=== PATIENT | female | born 1945 | race Caucasian/White ===

== ENCOUNTER 2023-10-08 13:51 | Outpatient (AMB) | payer MEDICARE, SELFPAY ==
--- NOTE | 2023-10-08 13:58 | A.OFFVIS_ITS ---
Intake Vital Signs 10/08/23 14:02 Height 5 ft 4 in Weight 170 lb 6 oz BMI 29.2 BP 141/81 H Blood Pressure Location Rt brachial Position Sitting Pulse 99 Pulse Source Pulse Oximeter Pulse Oximetry (%) 100 Oxygen Delivery Method Room Air Intake Visit Reasons: carlos foot pain Intake Note: Pain today 5/10 Cardiovascular Rn Required: No Accompanied by: Self / Same As Patient Allergies Penicillins Allergy (Unknown, Verified 10/08/23 14:01) Anaphylaxis garcinia Allergy (Unknown, Uncoded 10/08/23 14:01) Rash HPI carlos foot pain HPI Details Patient is a pleasant 78 years old female with history of osteopenia, neuropathy, IFG with A1C 6.3, prior toes fractures on both feet by hitting a piece of furniture in the middle of night, presents today for initial evaluation of bilateral feet due to neuropathy symptoms. Denies any recent trauma, injury or falls. She was seen by [facility] a year ago with discussion of potential bunionectomy but has not made decision for this. Patient is interested in more modern approach to traditional bunionectomy and will follow up with Dr. Silveira about this. Patient also reports widespread body pain, chronic back pain and fibromyalgia for which takes muscle relaxant. She has been hesitant to gabapentin in the past due to potential side effects. Pain is constant and is worst at night. She rates pain at 5/10 during the day and 8/10 at night. Pain affects her daily functioning, ADLs, sleep, mood and social activities. Denies any fever, infection, weight loss, claudication, bladder or bowel dysfunction or saddle anesthesia. Location Bilateral feet, pain will travel to her knees at times Duration Chronic pain for >15 years Characteristics of symptom or complaint Burning, numbness, tingling, aching, stabbing, dull Aggravating or associated factors Sitting, walking, weather changes Relieving factors Muscle relaxer Treatment [facility] -discussed potential bunionectomy in [facility] Medical History (Updated 10/08/23 @ 15:18 by MARIA FERNANDA Centeno) Retinal vein occlusion Hypertension Hyperlipidemia GERD (gastroesophageal reflux disease) Fibromyalgia Attention deficit disorder of adult with hyperactivity Surgical History Hx of tonsillectomy H/O section Social History (Reviewed 10/08/23 @ 14:12 by LINDA Centeno Alcohol intake: current Alcohol intake frequency: holidays/special occasions only Patient Tobacco Use Status: Former Tobacco user Quit Date: 1974 Tobacco use type: Cigarette Review of Systems Const All systems reviewed & are unremarkable except as noted in HPI and below Reports as per HPI, Denies body aches, Denies chills, Reports fatigue, Denies fever(s), Denies headache(s), Denies malaise, Denies stops breathing during sleep, Reports weakness and Denies weight loss ENT Denies headache(s) and Reports neck pain Musc Reports as per HPI, Reports back pain, Reports arthralgias, Denies joint swelling, Reports limited range of motion, Denies muscle weakness, Reports neck pain, Reports numbness, Denies radiating pain into limb, Reports stiffness and Reports tingling Neuro Denies headache(s), Reports numbness, Reports tingling and Reports weakness Endo Reports fatigue Physical Exam Vital Signs: Last Vital Signs Pulse 99 10/08/23 14:02 BP 141/81 H 10/08/23 14:02 Pulse Ox 100 10/08/23 14:02 Oxygen Delivery Method Room Air 10/08/23 14:02 BMI result Body Mass Index 29.2 General: Appears afebrile. Alert and oriented. Mood and affect appropriate. Follows and participates in conversation appropriately. Respiratory effort is unlabored. No cough. Able to transition from sit to stand unassisted. Ambulates with bilaterally normal heel strike and toe off. Back/Spine/Pelvis Cervical Spine: cervical ROM normal and No Cervical spine tenderness Thoracic/Lumbar Spine: thoracic and lumbar spine normal to inspection, No Thoracic/lumbar spine scar(s), Lasegue's sign negative, straight leg raise negative bilaterally, No paraspinal muscle tenderness, thoraco-lumbar ROM limited, No thoracic spinal tenderness and No lumbar spinal tenderness Pelvis: no buttock tenderness Extrem Other: There is a decreased sensation over the soles of the feet and toes. Reports numbness, burning, hot, tingling in both feet, worse at night time. No breaks in the skin. No soft tissue swelling or warmth. +2 pedal pulses bilaterally. Diminished patellar and achilles reflexes bilaterally. No allodynia or pinprick hyperalgesia. Protective pain sensation is intact bilaterally. Mild bony enlargement along bunions bilaterally. General: Yes capillary refill normal, Yes no clubbing, cyanosis or edema and Yes no calf tenderness Results Reviewed Results Reviewed: No imaging reports are available today for review. Assessment & Plan Assessment & Plan (1) Peripheral neuropathy: Code(s): G62.9 - Polyneuropathy, unspecified (2) Bilateral foot pain: Code(s): M79.671 - Pain in right foot; M79.672 - Pain in left foot (3) Fibromyalgia: Code(s): M79.7 - Fibromyalgia Plan EMG and NVC studies to differentiate chronic peripheral neuropathy. She has history of IFG with A1C 6.3, diet and exercise controlled. Discussed risks and benefits of different treatment options including topical 8% capsaicin application and spinal cord stimulation. Informational pamphlet provided on Qutenza, gabapentin and Nevro SCS trial. Will try to arrange topical 8% capsaicin application for bilateral foot pain as the next step once we have confirmed availability. All questions and concerns have been answered and the patient agreed with the plan. Patient will return to the clinic to discuss results of the EMG/NVC findings when it is done and consider interventional therapy as indicated. Orders: Orders 2 NE nerve conduction velocity Today G62.9 - Polyneuropathy, unspecified, M79.671 - Pain in right foot, M79.672 - Pain in left foot NE electromyogram (EMG) Today G62.9 - Polyneuropathy, unspecified, M79.671 - Pain in right foot, M79.672 - Pain in left foot Medications: New diclofenac sodium 1% (Arthritis Pain (diclofenac)) apply to single knee, ankle, foot; for foot includes sole/toes/top of foot 4 grams topical QID 100 grams 0RF pain M79.671 - Pain in right foot, M79.672 - Pain in left foot capsaicin 0.1% (Arthritis Pain Relief (capsaicin)) do not wash area for at least 30 min after application 1 appl topical TID 60 grams 0RF neuropathy G62.9 - Polyneuropathy, unspecified Coding Level of Care Code New Pt Level 4 (94189) Diagnoses Peripheral neuropathy G62.9 Bilateral foot pain M79.671; M79.672 Fibromyalgia M79.7
[2023-10-08 14:02] VITALS: BP 141/81; PULSE 99; O2SAT 100; BMI 29.2
== END 2023-10-08 14:36 | disposition home or self-care (01) ==
PROVIDERS: PCP Internal Medicine; Referring Provider Internal Medicine; Visit Provider Nurse Practitioner Family
DX: G62.9 Polyneuropathy, unspecified (principal); M79.671 Pain in right foot; M79.672 Pain in left foot; M79.7 Fibromyalgia
CPT/HCPCS: 99204

== ENCOUNTER → 2023-10-08 13:51 | Outpatient (BNVA) | payer MEDICARE, SELFPAY | PROVIDERS: PCP Internal Medicine; Referring Provider Internal Medicine; Visit Provider Nurse Practitioner Family | DX: M79.671 Pain in right foot (principal); M79.672 Pain in left foot; M79.7 Fibromyalgia; G62.9 Polyneuropathy, unspecified | CPT/HCPCS: 99202 ==

== ENCOUNTER 2023-12-27 09:24 | Outpatient (REF) | payer MEDICARE, SELFPAY ==
--- NOTE | 2023-12-27 09:30 | EMG_ITS ---
Chief complaint: Chronic numbness on bilateral lower legs, knee area down to right dorsal foot and big toe, right worse than left. No footdrop. Nondiabetic. Reason for referral: Evaluate for neuropathy Referred by: Lisa Chairez NP Procedure done: Bilateral lower extremity NCS/EMG Precautions and/or limitations: None The limb temperature was monitored continuously and remained between 32-36 degrees C during the performance of the NCS. Nerve Conduction Studies Anti Sensory Summary Table ?Stim Site NR Onset (ms) Norm Onset (ms) Peak (ms) Norm Peak (ms) O-P Amp (?V) Norm O-P Amp Site1 Site2 Delta-0 (ms) Dist (cm) Cali (m/s) Norm Cali (m/s) Left Sup Peron Anti Sensory (Ankle) Lateral Leg ? 1.8 2.6 <4.4 11.7 >5.0 Lateral Leg Ankle 1.8 14.0 78 Right Sup Peron Anti Sensory (Ankle) Lateral Leg NR <4.4 >5.0 Lateral Leg Ankle 14.0 Left Sural Anti Sensory (Lat Mall) Calf ? 2.8 3.7 <4.0 6.4 >5.0 Calf Lat Mall 2.8 14.0 50 Right Sural Anti Sensory (Lat Mall) Calf ? 2.3 4.0 <4.0 7.2 >5.0 Calf Lat Mall 2.3 14.0 61 Motor Summary Table ?Stim Site NR Onset (ms) Norm Onset (ms) O-P Amp (mV) Norm O-P Amp iAmp (mV) Amp (1st) (%) Site1 Site2 Delta-0 (ms) Dist (cm) Cali (m/s) Norm Cali (m/s) Left Peroneal Motor (Ext Dig Brev) Ankle ? 3.9 <4.0 10.6 >2.5 13.2 100.0 Ankle Ext Dig Brev 3.9 0.0 B Fib ? 9.9 9.7 12.3 91.5 B Fib Ankle 6.0 30.0 50 >40 Poplt ? 11.4 9.8 12.1 92.5 Poplt B Fib 1.5 7.0 47 >40 Right Peroneal Motor (Ext Dig Brev) Ankle ? 4.4 <4.0 6.4 >2.5 8.6 100.0 Ankle Ext Dig Brev 4.4 0.0 B Fib ? 10.9 5.7 7.6 89.1 B Fib Ankle 6.5 33.0 51 >40 Poplt ? 12.3 5.5 7.0 85.9 Poplt B Fib 1.4 6.0 43 >40 Left Tibial Motor (Abd Vásquez Brev) Ankle ? 3.7 <5 10.5 >2.5 13.8 100.0 Ankle Abd Vásquez Brev 3.7 0.0 Knee ? 11.7 7.8 10.5 74.3 Knee Ankle 8.0 38.0 48 >40 Right Tibial Motor (Abd Vásquez Brev) Ankle ? 4.1 <5 13.2 >2.5 17.6 100.0 Ankle Abd Vásquez Brev 4.1 0.0 Knee ? 11.8 8.8 12.6 66.7 Knee Ankle 7.7 41.0 53 >40 EMG ?Side Muscle Nerve Root Ins Act Fibs Psw Amp Dur Poly Recrt Int Pat Comment Right AbdHallucis MedPlantar S1-2 Nml Nml Nml Nml Nml 0 Nml Complete Right AntTibialis Dp Br Peron L4-5 Nml Nml Nml Nml Nml 0 Nml Complete Right PostTibialis Tibial L5, S1 Nml Nml Nml Nml Nml 0 Nml Complete Right MedGastroc Tibial S1-2 Nml Nml Nml Nml Nml 0 Nml Complete Right VastusMed Femoral L2-4 Nml Nml Nml Nml Nml 0 Nml Complete Right ExtHallLong Dp Br Peron L5, S1 Nml Nml Nml Nml Nml 0 Nml Complete Right Peroneus Long Sup Br Peron L5-S1 Nml Nml Nml Nml Nml 0 Nml Complete Left AbdHallucis MedPlantar S1-2 Nml Nml Nml Nml Nml 0 Nml Complete Left AntTibialis Dp Br Peron L4-5 Nml Nml Nml Nml Nml 0 Nml Complete Left MedGastroc Tibial S1-2 Nml Nml Nml Nml Nml 0 Nml Complete Left VastusMed Femoral L2-4 Nml Nml Nml Nml Nml 0 Nml Complete Paraspinal EMG ?Side Muscle Nerve Root Ins Act Fibs Psw Comment Right Lumbar Upper Rami Nml Nml Nml Right Lumbar Mid Rami Nml Nml Nml Right Lumbar Lower Rami Nml Nml Nml Left Lumbar Upper Rami Nml Nml Nml Left Lumbar Mid Rami Nml Nml Nml Left Lumbar Lower Rami Nml Nml Nml FINDINGS: Right peroneal nerve showed prolonged distal latency, normal amplitude and slight slowing of conduction velocity across the fibular neck. Right superficial peroneal sensory nerve was absent. All other nerves tested were within normal. Concentric needle EMG was performed in selected muscles of the bilateral lower extremity and lumbar paraspinals. Study did not reveal signs of electric abnormalities as shown in the table below. IMPRESSION: 1. This is an abnormal study. 2. There is electrodiagnostic evidence for chronic common peroneal neuropathy, right only.. 3. There is no electrodiagnostic evidence for tibial neuropathy. lumbosacral plexopathy, lumbar radiculopathy, or more diffuse peripheral neuropathy. Thank you for your kind referral. Kay Francisco MD, LENA Board Certified, [place] [employer] and Rehabilitation (ABPMR) Board Certified, [place] Board [employer] Electrodiagnostic Medicine (ABEM) CODIN [id number] x 2 MTDD
== END 2023-12-27 09:25 | disposition home or self-care (01) ==
LOC: HO.NEURO 09:24
PROVIDERS: PCP Internal Medicine; Visit Provider Nurse Practitioner Family
DX: M79.671 Pain in right foot (principal); M79.672 Pain in left foot; G62.9 Polyneuropathy, unspecified
CPT/HCPCS: 95886; 95910

== ENCOUNTER → 2023-12-27 09:30 | Outpatient (BNV) | payer MEDICARE, SELFPAY | PROVIDERS: PCP Internal Medicine; Visit Provider Physical Medicine & Rehabilitation | DX: M79.604 Pain in right leg (principal); M79.605 Pain in left leg; G57.31 Lesion of lateral popliteal nerve, right lower limb | CPT/HCPCS: 95886; 95910 ==

== ENCOUNTER 2024-01-17 12:49 | Outpatient (REF) | payer MEDICARE, SELFPAY ==
--- NOTE | ~2024-01-17 | XR_ITS ---
EXAMINATION: XR LUMBOSACRAL SPINE WITH OBLIQUES CLINICAL INFORMATION: Spondylosis without myelopathy or radiculopathy lumbar region. COMPARISON: None available. TECHNIQUE: AP, both oblique, and lateral views of the lumbar spine. Lateral view of the lumbosacral junction. FINDINGS: The bones are diffusely demineralized. Leftward curvature of the lumbar spine. Degenerative changes in the bilateral sacroiliac joints and on limited images of the bilateral hips. Degenerative changes in the imaged lower thoracic spine. Atherosclerotic aortoiliac calcifications. Facet arthritis in the [id number] lumbar spine. Multilevel lumbar spondylosis with loss of disc space height most notable at L5-S1. Grade 1 anterolisthesis of L4 on L5. XR/XR lumbar spine 4V min IMPRESSION: Multilevel lumbar spondylosis most notable at L5-S1.
== END 2024-01-17 12:50 | disposition home or self-care (01) ==
LOC: HO.XRAY 12:49
PROVIDERS: PCP Internal Medicine; Visit Provider Nurse Practitioner Family
DX: M47.816 Spondylosis without myelopathy or radiculopathy, lumbar region (principal)
CPT/HCPCS: 72110

== ENCOUNTER 2024-01-31 14:09 | Outpatient (AMB) | payer MEDICARE, SELFPAY ==
--- NOTE | 2024-01-31 14:10 | A.OFFVIS_ITS ---
Intake Vital Signs 01/31/24 14:15 Height 5 ft 4 in Weight 171 lb 8 oz BMI 29.4 BP 140/62 H Blood Pressure Location Lt brachial Position Sitting Respiration 12 Pulse 83 Pulse Source Pulse Oximeter Pulse Oximetry (%) 95 Oxygen Delivery Method Room Air Intake Visit Reasons: Follow up EMG/Xray results Allergies Penicillins Allergy (Unknown, Verified 01/31/24 14:14) Anaphylaxis garcinia Allergy (Unknown, Uncoded 10/08/23 14:01) Rash HPI HPI Comments History of Present Illness Details Patient presents today to discuss recent Neurodiagnostic studies and lumbar spine xray results. Patient is accompanied by her . Patient continues to endorse lower back pain radiating into her lower buttocks and into both legs up to the knee levels bilaterally with paresthesia sensation worse in the right lower leg. Patient also reports bilateral leg pain with walking and reports she has multiple varicosities. Denies any previous Vascular evaluation for lower extremities. Denies any recent cough, cold, infection, fever, any significant changes in her medical history, medications or recent hospitalizations. PRIOR: Patient is a pleasant 78 years old female with history of osteopenia, neuropathy, IFG with A1C 6.3, prior toes fractures on both feet by hitting a piece of furniture in the middle of night, presents today for initial evaluation of bilateral feet due to neuropathy symptoms. Denies any recent trauma, injury or falls. She was seen by [facility] a year ago with discussion of potential bunionectomy but has not made decision for this. Patient is interested in more modern approach to traditional bunionectomy and will follow up with Dr. Silveira about this. Patient also reports widespread body pain, chronic back pain and fibromyalgia for which takes muscle relaxant. She has been hesitant to gabapentin in the past due to potential side effects. Pain is constant and is worst at night. She rates pain at 5/10 during the day and 8/10 at night. Pain affects her daily functioning, ADLs, sleep, mood and social activities. Denies any fever, infection, weight loss, claudication, bladder or bowel dysfunction or saddle anesthesia. Location Bilateral feet, pain will travel to her knees at times Duration Chronic pain for >15 years Characteristics of symptom or complaint Burning, numbness, tingling, aching, stabbing, dull Aggravating or associated factors Sitting, walking, weather changes Relieving factors Muscle relaxer Treatment [facility] -discussed potential bunionectomy in [facility] Medical History Retinal vein occlusion Hypertension Hyperlipidemia GERD (gastroesophageal reflux disease) Fibromyalgia Attention deficit disorder of adult with hyperactivity Surgical History Hx of tonsillectomy H/O section Social History Alcohol intake: current Alcohol intake frequency: holidays/special occasions only Patient Tobacco Use Status: Former Tobacco user Quit Date: 1974 Tobacco use type: Cigarette Review of Systems Const All systems reviewed & are unremarkable except as noted in HPI and below Physical Exam Vital Signs: Last Vital Signs Pulse 83 01/31/24 14:15 Resp 12 01/31/24 14:15 BP 140/62 H 01/31/24 14:15 Pulse Ox 95 01/31/24 14:15 Oxygen Delivery Method Room Air 01/31/24 14:15 BMI result Body Mass Index 29.4 General: Appears afebrile. Alert and oriented. Mood and affect appropriate. Follows and participates in conversation appropriately. Respiratory effort is unlabored. No cough. Able to transition from sit to stand unassisted. Ambulates with bilaterally normal heel strike and toe off. Back/Spine/Pelvis Cervical Spine: cervical ROM normal and No Cervical spine tenderness Thoracic/Lumbar Spine: thoracic and lumbar spine normal to inspection, No Thoracic/lumbar spine scar(s), Lasegue's sign negative, straight leg raise negative bilaterally, pain with thoraco-lumbar ROM, No paraspinal muscle tenderness, thoraco-lumbar ROM limited, No thoracic spinal tenderness and lumbar spinal tenderness at L4 and at L5 Pelvis: no buttock tenderness Sacroiliac joints: bilaterally (+Peyman's, left>right) tender to palpation Skin General skin exam: no rashes or lesions noted, no ecchymosis, spider nevi and other (varicosities noted to bilateral lower extremities) Extrem Other: There is a decreased sensation over the soles of the feet and toes. Reports numbness, burning, hot, tingling in both feet, worse at night time. No breaks in the skin. No soft tissue swelling or warmth. +2 pedal pulses bilaterally. Diminished patellar and achilles reflexes bilaterally. No allodynia or pinprick hyperalgesia. Protective pain sensation is intact bilaterally. Mild bony enlargement along bunions bilaterally. General: Yes capillary refill normal, Yes no clubbing, cyanosis or edema and Yes no calf tenderness Results Reviewed Results Reviewed: EMG and NVC studies 12/27/23 at [facility] [place] FINDINGS: Right peroneal nerve showed prolonged distal latency, normal amplitude and slight slowing of conduction velocity across the fibular neck. Right superficial peroneal sensory nerve was absent. All other nerves tested were within normal. Concentric needle EMG was performed in selected muscles of the bilateral lower extremity and lumbar paraspinals. Study did not reveal signs of electric abnormalities as shown in the table below. IMPRESSION: 1. This is an abnormal study. 2. There is electrodiagnostic evidence for chronic common peroneal neuropathy, right only.. 3. There is no electrodiagnostic evidence for tibial neuropathy. lumbosacral plexopathy, lumbar radiculopathy, or more diffuse peripheral neuropathy. XR LUMBOSACRAL SPINE WITH OBLIQUES 01/17/24 CLINICAL INFORMATION: Spondylosis without myelopathy or radiculopathy lumbar region. FINDINGS: The bones are diffusely demineralized. Leftward curvature of the lumbar spine. Degenerative changes in the bilateral sacroiliac joints and on limited images of the bilateral hips. Degenerative changes in the imaged lower thoracic spine. Atherosclerotic aortoiliac calcifications. Facet arthritis in the [id number] lumbar spine. Multilevel lumbar spondylosis with loss of disc space height most notable at L5-S1. Grade 1 anterolisthesis of L4 on L5. IMPRESSION: Multilevel lumbar spondylosis most notable at L5-S1. 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 Discussed risks and benefits of different treatment options including topical 8% capsaicin application and neuromodulation with Sprint PNS trial. Informational pamphlet provided on Qutenza and PNS/SCS trial. Procedures also discussed for lower back pain with discogenic and SIJ components. Patient will notify our office if she is interested to proceed with diagnostic injections for lower back and SIJ pain for potential PNS, SCS or RFA procedures. Tentatively plan for trial of right common peroneal nerve temporary stimulator placement at the popliteal fossa for right common peroneal neuropathy. Discussed risks and benefits of the procedure was explained to the patient and family in greater detail. Pending insurance approval for topical 8% capsaicin application for bilateral foot pain. Vascular Referral to evaluate for venous insufficiency and rule out PVD. All questions and concerns have been answered and the patient agreed with the plan. Follow up as needed. 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
[2024-01-31 14:15] VITALS: BP 140/62; PULSE 83; RESP 12; O2SAT 95; BMI 29.4
== END 2024-01-31 14:48 | disposition home or self-care (01) ==
PROVIDERS: PCP Internal Medicine; Visit Provider Nurse Practitioner Family
DX: I87.2 Venous insufficiency (chronic) (peripheral) (principal); G62.9 Polyneuropathy, unspecified; M79.7 Fibromyalgia; G57.01 Lesion of sciatic nerve, right lower limb; M47.816 Spondylosis without myelopathy or radiculopathy, lumbar region
CPT/HCPCS: 99214

== ENCOUNTER → 2024-01-31 14:09 | Outpatient (BNVA) | payer MEDICARE, SELFPAY | PROVIDERS: PCP Internal Medicine; Visit Provider Nurse Practitioner Family | DX: M79.7 Fibromyalgia (principal); M47.816 Spondylosis without myelopathy or radiculopathy, lumbar region; G57.01 Lesion of sciatic nerve, right lower limb; I87.2 Venous insufficiency (chronic) (peripheral) | CPT/HCPCS: 99212 ==

== ENCOUNTER 2024-04-16 15:34 | Outpatient (AMB) | payer MEDICARE, SELFPAY ==
[2024-04-16 15:44] VITALS: BMI 29.3
--- NOTE | 2024-04-16 15:44 | A.OFFVIS_ITS ---
Vital Signs 04/16/24 15:44 Height 5 ft 4 in Weight 171 lb BMI 29.3 Intake Visit Reasons: CHILD SUPPORT SPECIALIST/PCP referral for Intake Note: CHILD SUPPORT SPECIALIST who states left LE , states she was seen originally for neuropathy and it was shown that the Right LE had neuropathy and not as much on the Left. Left LE is believe to be . Pt states that she gets severe swelling throughout the day and she states it's in bilateral LE. Allergies Penicillins Allergy (Unknown, Verified 04/16/24 15:49) Anaphylaxis bevacizumab [From Avastin] Adverse Reaction (Intermediate, Verified 04/16/24 15:49) Eye Swelling garcinia Allergy (Unknown, Uncoded 04/16/24 15:49) Rash HPI HPI CHILD SUPPORT SPECIALIST/PCP referral for : Details: Pleasant 78-year-old female patient presents for painful varicose veins. Complaints include swelling of lower extremities, cramping, fatigue, and heaviness of the lower extremities. It has been affecting there daily activities including walking. It is noted more so in left leg. Of note she has had previous left leg tib-fib fractures. She has a newly diagnosed diabetic. In addition she quit smoking in 1974 Patient denies any previous venous surgery or injections. Patient denies any history of DVT/ PE. Patient denies any history of phlebitis. Trial of compression includes - [] They now present for vascular evaluation regarding their varicose veins. PFSH Medical History Retinal vein occlusion Hypertension Hyperlipidemia GERD (gastroesophageal reflux disease) Fibromyalgia Attention deficit disorder of adult with hyperactivity Surgical History Hx of tonsillectomy H/O section Social History Alcohol intake: current Alcohol intake frequency: holidays/special occasions only Patient Tobacco Use Status: Former Tobacco user Quit Date: 1974 Tobacco use type: Cigarette Review of Systems Const Reports as per HPI ENT Reports no additional complaints Card Denies chest pain, Denies chest pain at rest and Denies chest pain with activity Resp Denies chest congestion and Denies cough GI Reports no additional complaints Musc Details: pain over varicosities, aching of lower extremities, swelling, cramping, heaviness and tiredness, itching Denies abnormal gait Skin/Breast Reports pruritus and Denies wounds Neuro Reports no additional complaints and Denies abnormal gait Psych Denies no additional complaints Physical Exam Vital Signs: BMI result Body Mass Index 29.3 Const General: cooperative, healthy appearing and comfortable Orientation/consciousness: oriented to person, oriented to place and oriented to time Neck Carotids: no bruits Chest Chest palpation & inspection: normal inspection of the chest and normal palpation of entire chest wall Resp Effort & Inspection: normal respiratory effort and able to speak in complete sentences Cardio Rate: regular rate Heart sounds: S1 normal heart sound present and S2 normal heart sound present Peripheral pulses: Peripheral pulses 2+ throughout GI Inspection: Yes normal to inspection Skin Other: +2 edema, multiple spider telangiectasias CEAP Classification C4 - skin color changes Ep - Etiology Primary As - superficial veins P - reflux General skin exam: dry skin Neuro General: oriented to person, oriented to place and oriented to time Extrem Right lower extremity: full ROM, normal capillary refill and edema Left lower extremity: full ROM, normal capillary refill and edema Psych Mental Status: mental status grossly normal Assessment & Plan Assessment & Plan (1) Varicose veins of left lower extremity with inflammation: Code(s): I83.12 - Varicose veins of left lower extremity with inflammation Category: Medical Plan: In short, the patient has evidence of venous insufficiency. I have discussed the pathophysiology with the patient. In addition I have provided informational material regarding venous disease to the patient. We have discussed conservative measures including compression, elevation, and exercise. I have also provided a handout regarding appropriate use of compression stockings and where to purchase good compression stockings as well. I have taken the liberty of ordering venous insufficiency testing with the patient. They will follow up with me after testing. The patient had an opportunity to ask questions regarding the treatment plan. All questions were answered. Imaging studies, laboratory studies and physical exam results were discussed and reviewed in detail. No major barriers to understanding were identified. The patient expressed understanding and agreement with the above treatment plan. The patient is aware they should contact our office by phone for worsening of the current condition or the appearance of new symptoms. Thank you for allowing me to participate in the vascular care of this patient. If you have any questions or concerns regarding the treatment for the above condition please do not hesitate to contact me. The office telephone contact is [phone]. This note is constructed using voice recognition software. While every effort has been made to ensure accuracy, sports athletic trainer errors may have been included. Thank you for allowing me to participate in the care of your patient. Yours sincerely, Chance Barney MD, FACS, R.P.V.I. Orders: Orders US venous duplex LE BI 1 Week I83.12 - Varicose veins of left lower extremity with inflammation Coding Level of Care Code New Pt Level 4 (71454) Diagnoses Varicose veins of left lower extremity with inflammation I83.12
== END 2024-04-16 16:19 | disposition home or self-care (01) ==
PROVIDERS: PCP Internal Medicine; Visit Provider Surgery Vascular Surgery
DX: I83.12 Varicose veins of left lower extremity with inflammation (principal)
CPT/HCPCS: 99203

== ENCOUNTER → 2024-04-16 15:34 | Outpatient (BNVA) | payer MEDICARE, SELFPAY | PROVIDERS: PCP Internal Medicine; Visit Provider Surgery Vascular Surgery | DX: I83.12 Varicose veins of left lower extremity with inflammation (principal) | CPT/HCPCS: 99202 ==

== ENCOUNTER 2024-04-29 13:01 | Outpatient (REF) | payer MEDICARE, SELFPAY ==
--- NOTE | ~2024-04-29 | US_ITS ---
EXAMINATION: US LOWER EXTREMITY VENOUS (REFLUX EXAM), BILATERAL CLINICAL INDICATION: Lower extremity varicose veins with inflammation COMPARISON: None. TECHNIQUE: Color flow triplex imaging and compression Doppler was performed to evaluate both the deep and the superficial systems bilaterally. To evaluate the superficial system, the examination was performed in the upright position. Color-flow Doppler ultrasound and compression ultrasound were utilized. In addition, maneuvers were utilized to demonstrate reflux. FINDINGS: 1. DEEP VENOUS ULTRASOUND OF THE RIGHT LOWER EXTREMITY: Common Femoral Vein: Compressible, normal respiratory variation and augmented flow. Femoral Vein: Compressible, normal color flow and augmentation. Popliteal Vein: Compressible, normal augmentation. Deep Reflux: There is no evidence of reflux in the deep system in either the common femoral vein, superficial femoral or the popliteal vein. There is no evidence of a Frazier's cyst. 2. SUPERFICIAL ULTRASOUND WITH DOPPLER OF RIGHT LOWER EXTREMITY: GREAT SAPHENOUS VEIN: Saphenofemoral Junction: 0.4 cm; Reflux: 0 ms Proximal Thigh: 0.3 cm; Reflux: 0 ms Mid Thigh: 0.2 cm; Reflux: 0 ms Above Knee: 0.3 cm; Reflux: 0 ms At Knee: 0.3 cm; Reflux: 0 ms Below Knee: 0.3 cm; Reflux: 0 ms Mid Calf: 0.1 cm; Reflux: 0 ms Ankle: 0.2 cm; Reflux: 0 ms DUPLICATED MEDIAL GREAT SAPHENOUS VEIN: Diameter: None imaged Reflux: NA DUPLICATED LATERAL GREAT SAPHENOUS VEIN: Diameter: 0.1 cm Reflux: None SMALL SAPHENOUS VEIN: Saphenopopliteal Junction: 0.5 cm; Reflux: 0 ms Proximal: 0.2 cm; Reflux: 0 ms Distal: 0.1 cm; Reflux: 0 ms VEIN OF GIACOMINI: Size: NA Reflux: NA PERFORATORS: Location: None imaged Size: NA Reflux: NA VARICOSITIES: Location: Medial mid thigh off the great saphenous vein Size: 0.3 cm Reflux: None 3. DEEP VENOUS ULTRASOUND OF THE LEFT LOWER EXTREMITY: Common Femoral Vein: Compressible, normal respiratory variation and augmented flow. Femoral Vein: Compressible, normal color flow and augmentation. Popliteal Vein: Compressible, normal augmentation. Deep Reflux: There is no evidence of reflux in the deep system in either the common femoral vein, superficial femoral or the popliteal vein. There is no evidence of a Frazier's cyst. 4. SUPERFICIAL ULTRASOUND WITH DOPPLER OF LEFT LOWER EXTREMITY: GREAT SAPHENOUS VEIN: Saphenofemoral Junction: 0.6 cm; Reflux: 0 ms Proximal Thigh: 0.5 cm; Reflux: 0 ms Mid Thigh: 0.2 cm; Reflux: 0 ms Above Knee: 0.3 cm; Reflux: 0 ms At Knee: 0.3 cm; Reflux: 0 ms Below Knee: 0.3 cm; Reflux: 0 ms Mid Calf: 0.1 cm; Reflux: 0 ms Ankle: 0.2 cm; Reflux: 0 ms DUPLICATED MEDIAL GREAT SAPHENOUS VEIN: Diameter: None imaged Reflux: NA DUPLICATED LATERAL GREAT SAPHENOUS VEIN: Diameter: None imaged Reflux: NA SMALL SAPHENOUS VEIN: Saphenopopliteal Junction: 0.2 cm; Reflux: 0 ms Proximal: 0.2 cm; Reflux: 0 ms Distal: 0.2 cm; Reflux: 0 ms VEIN OF GIACOMINI: Size: NA Reflux: NA PERFORATORS: Location: Proximal calf off the great saphenous vein Size: 0.3 cm Reflux: None VARICOSITIES: Location: None Imaged Size: NA Reflux: NA US/US venous duplex LE BI IMPRESSION: Right: No significant venous insufficiency or reflux within the right great saphenous vein or small saphenous vein Left: No significant venous insufficiency or reflux within the left great saphenous vein or small saphenous vein
== END 2024-04-29 13:02 | disposition home or self-care (01) ==
LOC: HO.US 13:01
PROVIDERS: PCP Internal Medicine; Visit Provider Surgery Vascular Surgery
DX: I83.12 Varicose veins of left lower extremity with inflammation (principal)
CPT/HCPCS: 93970

== ENCOUNTER 2024-06-11 14:26 | Outpatient (AMB) | payer MEDICARE, SELFPAY ==
--- NOTE | 2024-06-11 14:27 | A.OFFVIS_ITS ---
Vital Signs 06/11/24 14:28 Height 5 ft 4 in Weight 158 lb 11.725 oz BMI 27.2 BP 118/78 Blood Pressure Location Rt brachial Pulse 76 Pulse Source Pulse Oximeter Intake Visit Reasons: Type 2 DM/CONFIRMED Intake Note: New Patient presents today to establish treatment for Diabetes Mellitus: Last Diabetic Eye exam: 05/2024 Last Podiatry Exam: Does not see a [facility] Home [facility] Most recent HbA1c: 6.8%, 04/02/2024, PCP Random Glucose- 127 mg/dL, Today Online Marketer Required: No Accompanied by: Significant Other Allergies Penicillins Allergy (Unknown, Verified 06/11/24 14:27) Anaphylaxis bevacizumab [From Avastin] Adverse Reaction (Intermediate, Verified 06/11/24 14:27) Eye Swelling garcinia Allergy (Unknown, Uncoded 06/11/24 14:27) Rash HPI Comments Details: [78] YO [M/F] who is seen in consultation for T2DM. Initially diagnosed with T2DM in [new onset, previous impaired fasting glucose]. A1C in the office today 6.8% Was initially started on treatment with [diet/exercise]. Current regimen [diet/exercise]. Freestyle smiley sensor: She just started using this and her average is in good range with no lows. Most recent A1C [6.8%], [Denies] nephropathy, on [ARB]. [does not have ] HLD, labs pending [Denies] CAD. Denies numbness,tingling, cramping of the lower extremities Diet: [Balanced, seeing outside medical receptionist] Weight: [Has lost 15 lb] [Has not had] diabetes education. Osteopenia She reports that she has had a DEXA of the vertebral spine but not hip. She suffered 2 toe fractures when she bumped into a couch. She does exercise regularly. She takes a daily vitamin-D supplement and some dietary calcium in her diet. [facility] Medical History (Updated 06/12/24 @ 08:13 by Maria Luisa Rasmussen NP) Type 2 diabetes mellitus Retinal vein occlusion Hypertension Hyperlipidemia GERD (gastroesophageal reflux disease) Fibromyalgia Attention deficit disorder of adult with hyperactivity Surgical History Hx of tonsillectomy H/O section Family History (Updated 06/11/24 @ 14:39 by ROSE Romero) Father No problems noted. Mother Heart disease Social History Alcohol intake: current Alcohol intake frequency: holidays/special occasions only Patient Tobacco Use Status: Former Tobacco user Tobacco use type: Cigarette Physical Exam Vital Signs: Last Vital Signs Pulse 76 06/11/24 14:28 BP 118/78 06/11/24 14:28 BMI result Body Mass Index 27.2 Absence of Cushingoid features. Absence of acromegalic features. Neck exam reveals nl size thyroid about 15 gms. No thyroid nodules palpable. No carotid bruits present. Lungs CTA. Heart S1 S2, Reg R/R. No M/R/ G. Skin exam reveals absence of vitiligo or acanthosis nigricans. Abdominal exam reveals Soft NT/ND with NA BS. No organomegaly present. Const General: cooperative and healthy appearing Nutritional Appearance: average body habitus Orientation/consciousness: oriented to person Limitations: no limitations Neck Other: . Resp Effort & Inspection: normal respiratory effort Auscultation: clear to auscultation bilaterally Cardio Jugular venous distension: no JVD Rate: regular rate Rhythm: regular rhythm Heart sounds: S1 normal heart sound present and S2 normal heart sound present Neuro General: oriented to person Extrem Other: Visual exam of foot performed. No ulcerations or open lesions. No onchomycosis, no callouses.Pulses 2 + distally Sensation intact to monofilament exam. Vibratory sensation sensed is intact with 128 Hz tuning fork Results Reviewed Results Reviewed: Laboratory Last Values Glucose (Clinic) 127 mg/dL (60-115) H 06/11/24 14:38 PCP notes reviewed. Assessment & Plan Assessment & Plan (1) Type 2 diabetes mellitus: Code(s): E11.9 - Type 2 diabetes mellitus without complications Category: Medical Plan: 78-year-old female with a prior history of impaired fasting glucose has new onset type 2 diabetes. A1c in the office today is 6.8%. She is on a freestyle Smiley 3 which she just started and numbers are in good range. She is following a balanced diet and has lost approximately 15 lb and exercises regularly. Continue diet and exercise and see the patient back in 6 months' time. She has a history of irregular heartbeat and I will obtain her labs from her PCP. If no TSH has been ordered we will have the patient go to the lab for this. (2) Osteopenia: Code(s): M85.80 - Other specified disorders of bone density and structure, unspecified site Category: Medical Plan: Patient reports that she has osteopenia on vertebral x-ray. DEXA ordered. She is taking an OTC vitamin-D supplement. She was advised to consume 1200 mg of calcium daily preferably through diet. If she is not able to get this through dietary intake she will add calcium 500 mg supplement. Orders: Orders XR DEXA axial skeleton Today M85.80 - Other specified disorders of bone density and structure, unspecified site XR DEXA vertrebral fracture Today M85.80 - Other specified disorders of bone density and structure, unspecified site Coding Level of Care Code New Pt Level 5 (43112) Complex EM visit Add On G2211 Diagnoses Type 2 diabetes mellitus E11.9 Osteopenia M85.80 Time Spent (min) 60 Comment Time spent reviewing labs/previous provider notes, face to face, chart documentation
[2024-06-11 14:28] VITALS: BP 118/78; PULSE 76; BMI 27.2
[2024-06-11 14:44] LABS: Glucose, Whole Blood 127 mg/dL (60-115)
== END 2024-06-11 15:09 | disposition home or self-care (01) ==
PROVIDERS: PCP Internal Medicine; Visit Provider Nurse Practitioner Adult Health
DX: E11.9 Type 2 diabetes mellitus without complications (principal); M85.80 Other specified disorders of bone density and structure, unspecified site
CPT/HCPCS: 99205; G2211

== ENCOUNTER → 2024-06-11 14:26 | Outpatient (BNVA) | payer MEDICARE, SELFPAY | PROVIDERS: PCP Internal Medicine; Visit Provider Nurse Practitioner Adult Health | DX: E11.9 Type 2 diabetes mellitus without complications (principal); M85.80 Other specified disorders of bone density and structure, unspecified site | CPT/HCPCS: 82947; 99202 ==

== ENCOUNTER 2024-07-02 14:40 | Outpatient (AMB) | payer MEDICARE, SELFPAY ==
--- NOTE | 2024-07-02 14:44 | A.OFFVIS_ITS ---
Intake Visit Reasons: Follow Up 04/29 [facility] Intake Note: Patient presents for follow up 04/29 . She is experiencing swelling , left is worse. Has had mild cramping. Accompanied by: Spouse Allergies Penicillins Allergy (Unknown, Verified 07/02/24 14:46) Anaphylaxis bevacizumab [From Avastin] Adverse Reaction (Intermediate, Verified 07/02/24 14:46) Eye Swelling garcinia Allergy (Unknown, Uncoded 06/11/24 14:27) Rash HPI HPI Follow Up 04/29 [facility]: Details: Pleasant 78-year-old female presents for follow-up regarding lower extremity swelling. She reports it is left more so than right. She has had no interval changes. She now presents for follow-up with venous insufficiency testing. REPLACED BY [facility] Medical History Type 2 diabetes mellitus Retinal vein occlusion Hypertension Hyperlipidemia GERD (gastroesophageal reflux disease) Fibromyalgia Attention deficit disorder of adult with hyperactivity Surgical History Hx of tonsillectomy H/O section Family History Father No problems noted. Mother Heart disease Social History Alcohol intake: current Alcohol intake frequency: holidays/special occasions only Patient Tobacco Use Status: Former Tobacco user Tobacco use type: Cigarette Review of Systems Const All systems reviewed & are unremarkable except as noted in HPI and below Reports no additional complaints ENT Reports Normal hearing present Card Denies chest pain, Denies chest pain at rest, Denies chest pain with activity and Denies pedal edema Resp Denies cough GI Denies abdominal pain Musc Denies abnormal gait, Denies muscle cramps and Denies radiating pain into limb Skin/Breast Denies skin ulcer and Denies wounds Neuro Reports Normal hearing present and Denies abnormal gait Psych Reports no additional complaints Physical Exam Const General: cooperative, healthy appearing and comfortable Orientation/consciousness: oriented to person, oriented to place and oriented to time HEENT Head: Yes normal to inspection Neck Neck: Yes normal visual inspection Carotids: no bruits Chest Chest palpation & inspection: normal inspection of the chest Resp Effort & Inspection: normal respiratory effort and able to speak in complete sentences Auscultation: clear to auscultation bilaterally, no crackles, no rales, no rhonchi and no wheezes Cardio Rate: regular rate Rhythm: regular rhythm Heart sounds: S1 normal heart sound present and S2 normal heart sound present Bruits: no carotid bruits Peripheral pulses: Peripheral pulses 2+ throughout GI Inspection: Yes normal to inspection Skin Wounds: no wounds Hair: normal Neuro General: oriented to person, oriented to place and oriented to time Cranial nerves: Yes CN's II-XII intact bilaterally and Yes Normal hearing present Cognition (Neuro): normal cognition Motor exam (neuro): 5/5 motor strength present throughout Extrem Other: venous exam: +1 edema General: No clubbing, No cyanosis and Yes edema Psych Appearance: grossly normal Mental Status: mental status grossly normal Speech and movement: Normal speech and movement present Results Reviewed Results Reviewed: Brief summary of venous insufficiency testing is as follows: right great saphenous vein: negative right small saphenous vein: negative right accessory vein: none present left great saphenous vein: negative left small saphenous vein: negative left accessory vein: none present Please note there is no evidence of any venous aneurysms or significant tortuosity Assessment & Plan Assessment & Plan (1) Varicose veins of left lower extremity with inflammation: Code(s): I83.12 - Varicose veins of left lower extremity with inflammation Category: Medical Plan: In short patient is negative for any significant venous insufficiency. We did discuss routine conservative measures including compression elevation and exer cise. She will follow up with us on an as-needed basis. Thank you for allowing us to assist in her care. If there are any questions or concerns please do not hesitate to contact us Coding Level of Care Code Est Pt Level 4 (29188) Diagnoses Varicose veins of left lower extremity with inflammation I83.12
== END 2024-07-02 15:05 | disposition home or self-care (01) ==
PROVIDERS: PCP Internal Medicine; Visit Provider Surgery Vascular Surgery
DX: I83.12 Varicose veins of left lower extremity with inflammation (principal)
CPT/HCPCS: 99213

== ENCOUNTER → 2024-07-02 14:40 | Outpatient (BNVA) | payer MEDICARE, SELFPAY | PROVIDERS: PCP Internal Medicine; Visit Provider Surgery Vascular Surgery | DX: I83.12 Varicose veins of left lower extremity with inflammation (principal) | CPT/HCPCS: 99212 ==

== ENCOUNTER 2024-07-10 13:06 | Outpatient (REF) | payer MEDICARE, SELFPAY ==
--- NOTE | ~2024-07-10 | MM_ITS ---
EXAMINATION: BONE DENSITOMETRY CLINICAL INDICATION: Osteopenia. COMPARISON: This is the patient's baseline examination. TECHNIQUE: Using a [employer] DXA System (software version: 13.1) manufactured by [employer], dual-energy x-ray absorptiometry was performed of the lumbar spine and left hip. The images are of good technical quality. Summary results are attached. FINDINGS: LEFT FEMUR, NECK: BMD 0.730 g/cm2, Z-score -0.3, T-score -2.2, osteopenia. LEFT FEMUR, TOTAL: BMD 0.755 g/cm2, Z-score -0.2, T-score -2.0, osteopenia. AP SPINE L1-L4: BMD 1.063 g/cm2, Z-score 0.7, T-score -1.0, normal. IDENTIFIED RISK FACTORS: Menopause, height loss, history of fracture (adult), thiazide, osteoporosis, . HISTORY OF FRACTURE: Other. MEDICATIONS: Calcium, vitamin D. MM/XR DEXA axial skeleton IMPRESSION: 1. DIAGNOSIS: Osteopenia based on the lowest T-score value of -2.2 in the femoral neck applying World Health Organization criteria. 2. 10-YEAR FRACTURE RISK PREDICTION, FRAX: Major osteoporotic fracture (clinical spine, forearm, hip or shoulder) 23.6%. Hip fracture 6.8%. 3. Treatment Recommendations: NOF guidelines recommend consideration for treatment in postmenopausal women and men age 50 and older presenting with the following: -A hip or vertebral (clinical or morphometric) fracture. -T-score less than or equal to -2.5 at the femoral neck or spine after appropriate evaluation to exclude secondary causes. -Low bone mass at the hip or spine and a 10-year fracture probability by FRAX of greater than or equal to 3% for hip fracture or greater than or equal to 20% for major osteoporotic fracture based on the [place] adapted WHO algorithm. 4. Other Recommendations: All treatment decisions require clinical judgment and consideration of individual patient factors, including patient preferences, comorbidities, previous drug use, risk factors not captured in the FRAX model (e.g. frailty, falls, vitamin D deficiency, increased bone turnover, interval significant decline in bone density) and possible under or overestimation of fracture risk by FRAX. Additional medical evaluation for secondary cause of low bone mineral density may be appropriate. FUTURE SCAN RECOMMENDATION: People with diagnosed cases of osteoporosis or at high risk for fracture should have regular bone mineral density tests. For patients eligible for Medicare, routine testing is allowed once every 2 years. The testing frequency can be increased to one year for patients who have rapidly progressing disease, those who are receiving or discontinuing medical therapy to restore bone mass, or have additional risk factors.
== END 2024-07-10 13:07 | disposition home or self-care (01) ==
LOC: HO.MAMMO 13:06
PROVIDERS: PCP Internal Medicine; Visit Provider Nurse Practitioner Adult Health
DX: Z13.820 Encounter for screening for osteoporosis (principal); M85.80 Other specified disorders of bone density and structure, unspecified site; Z78.0 Asymptomatic menopausal state
CPT/HCPCS: 77080

== ENCOUNTER 2024-09-09 14:36 | Outpatient (AMB) | payer MEDICARE, SELFPAY ==
[2024-09-09 14:37] VITALS: BP 170/92; PULSE 71; BMI 26.6
--- NOTE | 2024-09-09 14:37 | MHC.OFFVIS ---
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/ Dr Beata Figueroa/Irregular heart beat/dm Compressor Battery Pellets Required: No Accompanied by: Self / Same As Patient Allergies Penicillins Allergy (Unknown, Verified 07/02/24 14:46) Anaphylaxis bevacizumab [From Avastin] Adverse Reaction (Intermediate, Verified 07/02/24 14:46) Eye Swelling garcinia Allergy (Unknown, Uncoded 06/11/24 14:27) Rash Medication List - Last Reconciled 09/09/24 by Braxton Enrique MD cetirizine (Zyrtec) 10 mg PO DAILY PRN cyclobenzaprine 10 mg PO TID PRN cyclosporine 0.05% (Restasis) 1 drp ophthalmic (eye) Q12H docusate sodium (Stool Softener) 100 mg PO BID hydrochlorothiazide 25 mg PO DAILY losartan 100 mg PO DAILY metoprolol succinate ER 25 mg PO DAILY metoprolol succinate ER 50 mg PO DAILY [omega 7 PO DAILY] sennosides (senna) 8.6 mg PO DAILY HPI Comments Details: Polo is here for consultation regarding palpitations. Few weeks back, she was having palpitations. Then she underwent Holter monitor that had shown supraventricular/ventricular ectopy. There is no prior cardiac history. She has seen Cardiology at [place] in the past but that was many years ago. Not known to have any coronary disease or myocardial infarction or cardiomyopathy or any other cardiac issues. Her blood pressure is high but she feels it is because of white coat hypertension. However, she does take blood pressure meds at home. Also diabetic on metformin. She does not have any other complaints like angina or shortness of breath. [facility] Medical History (Updated 09/09/24 @ 15:53 by Braxton Enrique MD) Type 2 diabetes mellitus Retinal vein occlusion Hypertension Hyperlipidemia GERD (gastroesophageal reflux disease) Fibromyalgia Attention deficit disorder of adult with hyperactivity Surgical History (Updated 09/09/24 @ 14:45 by Ama Gordon CMA) Cataract Hx of tonsillectomy H/O section Family History Father No problems noted. Mother Heart disease Lung cancer Paternal Grandfather HTN (hypertension) Parkinsons Maternal Grandmother Cancer Social History Alcohol intake: current Alcohol intake frequency: holidays/special occasions only Patient Tobacco Use Status: Former Tobacco user Tobacco use type: Cigarette Review of Systems Const Denies chills, Denies daytime sleepiness, Denies fatigue, Denies fever(s), Denies poor appetite, Denies snoring, Denies stops breathing during sleep, Denies weakness, Denies weight gain and Denies weight loss Eyes Denies loss of vision ENT Denies dizziness and Denies hearing loss Card Denies chest pain, Denies irregular heart rhythm, Denies claudication, Reports leg edema, Denies lightheadedness, Denies palpitations, Reports dyspnea on exertion and Denies orthopnea Resp Denies cough, Denies excessive phlegm production, Reports dyspnea on exertion, Denies snoring and Denies wheezing GI Denies abdominal pain, Denies hematochezia, Denies change in bowel habits, Denies nausea and Denies vomiting Denies urinary frequency and Denies dysuria Musc Denies arthralgias, Denies muscle weakness, Denies numbness and Denies other Skin/Breast Denies nail changes and Denies rash Neuro Denies Abnormal speech present, Denies dizziness, Denies loss of vision, Denies memory loss, Denies numbness and Denies weakness Psych Denies depression and Denies memory loss Endo Denies fatigue and Denies palpitations Mayank/Lymph Denies easy bruising Aller/Immun Denies wheezing Physical Exam Vital Signs: Last Vital Signs Pulse 71 09/09/24 14:37 BP 170/92 H 09/09/24 14:37 BMI result Body Mass Index 26.6 Const General: comfortable and no acute distress Orientation/consciousness: patient oriented x3 HEENT Other: Unremarkable Head: Yes normal to inspection Neck Neck: Yes normal visual inspection Chest Chest palpation & inspection: normal inspection of the chest Resp Auscultation: clear to auscultation bilaterally Cardio Palpation: normal PMI Heart sounds: S1 normal heart sound present, S2 normal heart sound present, no gallops, no murmurs and no rubs GI Palpation (GI): Soft to palpation Back/Spine/Pelvis Other: unremarkable Skin General skin exam: no rashes or lesions noted Neuro General: patient oriented x3 Speech: No Abnormal speech present Extrem General: Yes normal to inspection Psych Mental Status: mental status grossly normal Office Procedures EKG Details: EKG with underlying sinus rhythm at 71/Min; no significant ST-T changes and otherwise unremarkable[place]. [id number], Complete Assessment & Plan Assessment & Plan (1) Atrial arrhythmia: Code(s): I49.8 - Other specified cardiac arrhythmias Category: Medical Plan: In the recent Holter monitor, underlying rhythm is sinus. There is evidence of sinus tachycardia and low burden PACs/PVCs. Findings discussed with patient. She may continue on the beta-blockers that she is already on. We will get echocardiogram for cardiac function as well as left atrial size. (2) Hypertension: Code(s): I10 - Essential (primary) hypertension Category: Medical Plan: Blood pressure is elevated today. I checked blood pressure independently and it is still on the higher side. She states she normally takes metoprolol ER 75 mg daily but this week she has only taken 50 mg daily. She can go back to her usual dose. Advised her to do home checks. She will contact us with readings. Also on losartan, hydrochlorothiazide. Orders: Orders CA echo transthoracic complete Today I49.8 - Other specified cardiac arrhythmias Coding Level of Care Code New Pt Level 4 (48737) Diagnoses Atrial arrhythmia I49.8 Hypertension I10 CPT Codes EKG - CPT: 44128-[id number], Complete ([id number])
== END 2024-09-09 15:18 | disposition home or self-care (01) ==
PROVIDERS: PCP Internal Medicine; Visit Provider Internal Medicine
DX: I49.8 Other specified cardiac arrhythmias (principal); I10 Essential (primary) hypertension
CPT/HCPCS: 93010; 99204

== ENCOUNTER → 2024-09-09 14:36 | Outpatient (BNVA) | payer MEDICARE, SELFPAY | PROVIDERS: PCP Internal Medicine; Visit Provider Internal Medicine | DX: I49.8 Other specified cardiac arrhythmias (principal); I10 Essential (primary) hypertension | CPT/HCPCS: 93005; 99202 ==

== ENCOUNTER 2024-09-15 15:59 | Outpatient (AMB) | payer MEDICARE, SELFPAY ==
--- NOTE | 2024-09-15 09:26 | A.OFFVIS_ITS ---
Vital Signs 09/15/24 16:02 Height 5 ft 4 in Weight 156 lb 8.451 oz BMI 26.9 BP 120/78 Blood Pressure Location Rt brachial Position Sitting Pulse 90 Pulse Source Pulse Oximeter Intake Visit Reasons: DEXA results/CONFIRMED Intake Note: Patient presents today for a follow-up on Type 2 Diabetes Mellitus & DEXA RESULTS: Last Diabetic Eye exam: 05/2024 Last Podiatry Exam: Does not see a Shirt Ironer Most recent HbA1c: 6.0%, 09/15/2024 Random Glucose- 104 mg/dL, Today Juice Tester Required: No Accompanied by: Significant Other Allergies Penicillins Allergy (Unknown, Verified 07/02/24 14:46) Anaphylaxis bevacizumab [From Avastin] Adverse Reaction (Intermediate, Verified 07/02/24 14:46) Eye Swelling garcinia Allergy (Unknown, Uncoded 06/11/24 14:27) Rash HPI Comments Details: 79 YO female who is seen in consultation for T2DM. Hemoglobin A1c 09/15/2024 6%, 04/13 6.8% Was initially started on treatment with diet and exercise. Current regimen diet and exercise. Freestyle ez sensor 3 average glucose: 123 14 day continuous glucose sensor report reviewed Glucose Management indicator 6.3 % Time CGM active [ ] % TIme in ranges: 0 % very high (above 250) 2 % high (181-250) 98 % in range (70-180] 0 % low (69-55) 0 % very low (below 54) Interpretation of CGMS: Excellent control [Denies] nephropathy, on [ARB]. [does not have ] HLD, [Denies] CAD. Denies numbness,tingling, cramping of the lower extremities Diet: [Balanced, seeing outside jacker feeder] Weight: [Has lost 15 lb] [Has not had] diabetes education. Osteopenia She suffered 2 toe fractures when she bumped into a couch. She does exercise regularly. She takes a daily vitamin-D supplement and some dietary calcium in her diet. Patient: Polo Bell MR#: [id number] : 1945 Acct:[id number] Age/Sex: 78 / F ADM Date: 07/10/24 Loc: [facility] Attending Dr: Maria Luisa Rasmussen NP Ordering Physician: Maria Luisa Rasmussen NP Results: Date of Service: 07/10/24 Follow Up: Procedure(s): XR DEXA axial skeleton Accession Number(s): [id number] cc: Beata Figueroa MD; Maria Luisa Rasmussen NP~ EXAMINATION: BONE DENSITOMETRY CLINICAL INDICATION: Osteopenia. COMPARISON: This is the patient's baseline examination. TECHNIQUE: Using a Blue Box DXA System (software version: 13.1) manufactured by [employer], dual-energy x-ray absorptiometry was performed of the lumbar spine and left hip. The images are of good technical quality. Summary results are attached. FINDINGS: LEFT FEMUR, NECK: BMD 0.730 g/cm2, Z-score -0.3, T-score -2.2, osteopenia. LEFT FEMUR, TOTAL: BMD 0.755 g/cm2, Z-score -0.2, T-score -2.0, osteopenia. AP SPINE L1-L4: BMD 1.063 g/cm2, Z-score 0.7, T-score -1.0, normal. IDENTIFIED RISK FACTORS: Menopause, height loss, history of fracture (adult), thiazide, osteoporosis, . HISTORY OF FRACTURE: Other. MEDICATIONS: Calcium, vitamin D. MM/XR DEXA axial skeleton IMPRESSION: 1. DIAGNOSIS: Osteopenia based on the lowest T-score value of -2.2 in the femoral neck applying World Health Organization criteria. 2. 10-YEAR FRACTURE RISK PREDICTION, FRAX: Major osteoporotic fracture (clinical spine, forearm, hip or shoulder) 23.6%. Hip fracture 6.8%. 3. Treatment Recommendations: NOF guidelines recommend consideration for treatment in postmenopausal women and men age 50 and older presenting with the following: -A hip or vertebral (clinical or morphometric) fracture. -T-score less than or equal to -2.5 at the femoral neck or spine after appropriate evaluation to exclude secondary causes. -Low bone mass at the hip or spine and a 10-year fracture probability by FRAX of greater than or equal to 3% for hip fracture or greater than or equal to 20% for major osteoporotic fracture based on the [place] adapted WHO algorithm. 4. Other Recommendations: All treatment decisions require clinical judgment and consideration of individual patient factors, including patient preferences, comorbidities, previous drug use, risk factors not captured in the FRAX model (e.g. frailty, falls, vitamin D deficiency, increased bone turnover, interval significant decline in bone density) and possible under or overestimation of fracture risk by FRAX. Additional medical evaluation for secondary cause of low bone mineral density may be appropriate. FUTURE SCAN RECOMMENDATION: People with diagnosed cases of osteoporosis or at high risk for fracture should have regular bone mineral density tests. For patients eligible for Medicare, routine testing is allowed once every 2 years. The testing frequency can be increased to one year for patients who have rapidly progressing disease, those who are receiving or discontinuing medical therapy to restore bone mass, or have additional risk factors. [facility] Medical History (Updated 09/09/24 @ 15:53 by Braxton Enrique MD) Type 2 diabetes mellitus Retinal vein occlusion Hypertension Hyperlipidemia GERD (gastroesophageal reflux disease) Fibromyalgia Attention deficit disorder of adult with hyperactivity Surgical History (Updated 09/09/24 @ 14:45 by Ama Gordon CMA) Cataract Hx of tonsillectomy H/O section Family History Father No problems noted. Mother Heart disease Lung cancer Paternal Grandfather HTN (hypertension) Parkinsons Maternal Grandmother Cancer Social History Alcohol intake: current Alcohol intake frequency: holidays/special occasions only Patient Tobacco Use Status: Former Tobacco user Tobacco use type: Cigarette Physical Exam Vital Signs: Last Vital Signs Pulse 90 09/15/24 16:02 BP 120/78 09/15/24 16:02 BMI result Body Mass Index 26.9 Const Other: Absence of Cushingoid features. Absence of acromegalic features. Neck exam reveals nl size thyroid about 15 gms. No thyroid nodules palpable. Heart S1 S2, Reg R/R. No M/R G. Skin exam reveals absence of vitiligo or acanthosis nigricans. Results AMB Hemoglobin A1c AMB Hemoglobin A1c 6.0 % Last Edit by ROSE Romero on 09/15/24 16:27 Results Reviewed Results Reviewed: Laboratory Last Values Glucose (Clinic) 104 mg/dL (60-115) 09/15/24 16:08 Hgb A1c (Clinic) 6.0 % (4.0-6.0) 09/15/24 16:14 Assessment & Plan Assessment & Plan (1) Type 2 diabetes mellitus: Code(s): E11.9 - Type 2 diabetes mellitus without complications Category: Medical Plan: Type 2 diabetic with a excellent control. Continue lifestyle measures of diet and exercise. Plan Osteopenia -2.2 Tscore she declines treatment at this time and was counseled on getting a 1200 mg of calcium and 800 IU of vitamin-D preferably in diet, supplement with otc vitamins Orders: Orders AMB Hemoglobin A1c 09/15/24 E11.9 - Type 2 diabetes mellitus without complications Alkaline Phosphatase Bone 09/15/24 M85.80 - Other specified disorders of bone density and structure, unspecified site Phosphorus 09/15/24 M85.80 - Other specified disorders of bone density and structure, unspecified site Vitamin D 25-OH Total 09/15/24 M85.80 - Other specified disorders of bone density and structure, unspecified site Albumin Level 09/15/24 M85.80 - Other specified disorders of bone density and structure, unspecified site Calcium 09/15/24 M85.80 - Other specified disorders of bone density and structure, unspecified site Parathyroid Hormone Intact 09/15/24 M85.80 - Other specified disorders of bone density and structure, unspecified site Protein Electrophoresis, Serum 09/15/24 M85.80 - Other specified disorders of bone density and structure, unspecified site Coding Level of Care Code Est Pt Level 2 (39185) Complex EM visit Add On G2211 Diagnoses Type 2 diabetes mellitus E11.9 Time Spent (min) 20 Comment Time spent reviewing labs/provider notes, face to face, chart doc
[2024-09-15 16:02] VITALS: BP 120/78; PULSE 90; BMI 26.9
[2024-09-15 16:16] LABS: Glucose, Whole Blood 104 mg/dL (60-115)
== END 2024-09-15 16:50 | disposition home or self-care (01) ==
PROVIDERS: PCP Internal Medicine; Visit Provider Nurse Practitioner Adult Health
DX: E11.9 Type 2 diabetes mellitus without complications (principal)
CPT/HCPCS: 99212; G2211

== ENCOUNTER → 2024-09-15 15:59 | Outpatient (BNVA) | payer MEDICARE, SELFPAY | PROVIDERS: PCP Internal Medicine; Visit Provider Nurse Practitioner Adult Health | DX: E11.9 Type 2 diabetes mellitus without complications (principal); Z13.820 Encounter for screening for osteoporosis; Z78.0 Asymptomatic menopausal state; M85.80 Other specified disorders of bone density and structure, unspecified site; Z79.899 Other long term (current) drug therapy | CPT/HCPCS: 82947; 83036; 99212 ==

== ENCOUNTER → 2024-10-09 12:59 | Outpatient (REF) | payer MEDICARE, SELFPAY ==
--- NOTE | 2024-10-09 13:02 | CA_ITS ---
Transthoracic Echocardiogram Patient (Last, First, Middle): Polo Bell B Gender: Female Date of : 1945 Age: 79 Procedure Date: 10/09/2024 Procedure Type: Transthoracic Echocardiogram Location: OP Height: 162. cm Weight: 70.31 kg BSA: 1.75 m2 Heart Rate: 79 bpm BP: 182 / 90 mmHg Betting Agency Manager: MICHA Referring MD: Braxton Enrique MD Symptoms: I49.8 - Other specified cardiac arrhythmias Study Quality: Fair ECG Rhythm: Sinus Conclusions: - Normal left ventricular cavity size. There is mildly increased left ventricular wall thickness. The left ventricular systolic function is hyperdynamic. The visually estimated ejection fraction is >70%. - E/E prime ratio is between 8 and 15 consistent with indeterminate filling pressures. - Normal right ventricular cavity size and systolic function. - There is mild calcification of the aortic valve. - There is mild dilatation of the ascending aorta measuring 3.80 cm. Findings Left Ventricle Normal left ventricular cavity size. There is mildly increased left ventricular wall thickness. The left ventricular systolic function is hyperdynamic. The visually estimated ejection fraction is >70%. There is no evidence of regional wall motion abnormalities. Abnormal diastolic function is noted. Spectral Doppler is indicative of an impaired relaxation filling pattern. E/E prime ratio is between 8 and 15 consistent with indeterminate filling pressures. Right Ventricle Normal right ventricular cavity size and systolic function. Atria The left atrium is normal in size. The right atrium is normal in size. Aortic Valve There is a normal trileaflet aortic valve. There is mild calcification of the aortic valve. There is no aortic valve stenosis. There is no aortic valve regurgitation. Mitral Valve There is mild mitral annular calcification. There is no mitral valve regurgitation. There is no mitral valve stenosis. Pulmonic Valve The pulmonic valve is likely normal. Tricuspid Valve Normal tricuspid valve structure. There is no tricuspid valve regurgitation. Tricuspid regurgitation envelope is inadequate for calculation of right ventricular systolic pressure. Normal right atrial pressure. Great Vessels There is mild dilatation of the ascending aorta measuring 3.80 cm. The visualized portions of the pulmonary artery and branches are normal. Venous The inferior vena cava is normal in size and collapses greater than 50% with inspiration. Pericardium/Pleural Prominent epicardial adipose tissue noted. There is no evidence of pericardial effusion. Prior Study Comparison No prior study available for comparison. Measurements 2D Linear Measurements IVSd: 1.05 0.6-0.9/0.6-1.0 cm LVIDd: 4.29 3.9-5.3/4.2-5.9 cm LVIDd Index: 2.45 2.4-3.2/2.2-3.1 cm/m2 LVIDs: 3.07 2.0-3.6 cm LVPWd: 1.01 0.7-1.1 cm LA Diam: 3.50 2.7-3.8/3.0-4.0 cm LAIDs Index: 2.00 1.5-2.3 cm/m2 LV Mass: 184.18 67-162/88-224 g LV Mass Index: 105.24 43-95/49-115 g/m2 LVOT Diam: 1.90 3.0+(-)1.3 cm 2D Systolic Function EF 4C: 69.20 >55% EF 2C: 72.00 >55% EF BiP: 70.40 >55% Mitral Valve MV Pk E: 0.76 MV PK A: 1.08 MV Decel Time: 259.00 E/A: 0.70 E'Lateral: 7.40 E'Medial: 4.68 E/E' Med: 16.30 E/E' Lat: 10.30 PHT: 76.00 MVA PHT: 2.89 [place]: 2.94 Aortic Valve AoV Pk Cali: 1.25 AoV Mn Cali: 0.97 AoV VTI: 0.26 AoV Pk Grad: 6.00 Aov Mn Grad: 4.00 DINO Cont.VTI: 2.56 LVOT LVOT Pk Cali: 1.21 LVOT Mn Cali: 0.89 LVOT VTI: 0.24 LVOT Pk Grad: 6.00 LVOT Mn Grad: 4.00 LVOT Diam: 1.90 LVOT Area: 2.84 Diastolic Function MV Pk E: 0.76 MV Pk A: 1.08 E/A: 0.70 E'Medial: 4.68 E/E' Med: 16.30 E' Laterial: 7.40 E/E' Lat: 10.30 Right Ventricle TAPSE (mm): 18.70 TVS' Cali: 10.10 Tricuspid Valve TR Pk Cali: 2.09 TR Pk Grad: 17.00 Great Vessels Aorta Sinus of Valsalva: 3.40 2.0-3.5 cm Ao Asc: 3.80 2.1-3.4 cm Ao Arch: 2.90 Pulmonary Valve PV Pk Cali: 0.95 Peak PV Grad: 4.00 Updated in Other Vendor System with Status of Final Fabrizio King MD electronically signed on 10/11/2024 7:43:25 PM with status of Final
== END ==
LOC: HO.CARD 12:59
PROVIDERS: PCP Internal Medicine; Visit Provider Internal Medicine
DX: I49.8 Other specified cardiac arrhythmias (principal)
CPT/HCPCS: 93306

== ENCOUNTER → 2024-10-09 13:02 | Outpatient (BNV) | payer MEDICARE, SELFPAY | PROVIDERS: PCP Internal Medicine; Visit Provider Internal Medicine Cardiovascular Disease | DX: I35.8 Other nonrheumatic aortic valve disorders (principal); I34.81 Nonrheumatic mitral (valve) annulus calcification | CPT/HCPCS: 93306 ==

== ENCOUNTER 2024-12-07 14:28 | Outpatient (AMB) | payer MEDICARE, SELFPAY ==
[2024-12-07 14:33] VITALS: BP 140/80; PULSE 85; BMI 27.0
--- NOTE | 2024-12-07 14:33 | A.OFFVIS_ITS ---
Vital Signs 12/07/24 14:33 Height 5 ft 4 in Weight 157 lb 6.561 oz BMI 27.0 BP 140/80 H Blood Pressure Location Rt brachial Position Sitting Pulse 85 Pulse Source Pulse Oximeter Intake Visit Reasons: *2 mth f/up echo Intake Note: 2 mth f/up Clean Out Driller Required: No Accompanied by: Self / Same As Patient Allergies Penicillins Allergy (Unknown, Verified 07/02/24 14:46) Anaphylaxis bevacizumab [From Avastin] Adverse Reaction (Intermediate, Verified 07/02/24 14:46) Eye Swelling garcinia Allergy (Unknown, Uncoded 06/11/24 14:27) Rash Medication List - Last Reconciled 12/07/24 by Molly Jacobson, CD REACTOR OPERATOR HEAD-C cetirizine (Zyrtec) 10 mg PO DAILY PRN cyclobenzaprine 10 mg PO TID PRN cyclosporine 0.05% (Restasis) 1 drp ophthalmic (eye) Q12H docusate sodium (Stool Softener) 100 mg PO BID hydrochlorothiazide 25 mg PO DAILY losartan 100 mg PO DAILY metoprolol succinate ER 50 mg PO DAILY [omega 7 PO DAILY] sennosides (senna) 8.6 mg PO DAILY HPI HPI *2 mth f/up echo: Details: Akira is a 79-year-old female with past medical history of hypertension, hyperlipidemia, diabetes, heart palpitations who recently had an echocardiogram and now presents for follow-up. Today she reports that she continues to have some brief palpitations. No sustained rapid rates. She has a smart watch which has said her rhythm was irr egular in the past however not recently. She is describing discomfort in her mid chest which occurs at times after eating, bending forward and if laying down. She says she has a valve that does not close good. When she has these symptoms she takes several Tums with gradual resolution. At times she will also get discomfort in her upper chest that radiates into her left arm. This symptom happens with the mid chest pains. She has no symptoms brought on by physical activity. No palpitations, lightheadedness, presyncope, syncope. No shortness of breath, PND, orthopnea or edema. Compliant with meds. [facility] Medical History (Updated 12/07/24 @ 16:14 by Molly Jacobson NP-C) Type 2 diabetes mellitus Retinal vein occlusion Hypertension Hyperlipidemia GERD (gastroesophageal reflux disease) Fibromyalgia Attention deficit disorder of adult with hyperactivity Surgical History Cataract Hx of tonsillectomy H/O section Family History Father No problems noted. Mother Heart disease Lung cancer Paternal Grandfather HTN (hypertension) Parkinsons Maternal Grandmother Cancer Social History Alcohol intake: current Alcohol intake frequency: holidays/special occasions only Patient Tobacco Use Status: Former Tobacco user Tobacco use type: Cigarette Review of Systems Const All systems reviewed & are unremarkable except as noted in HPI and below Denies chills, Denies fatigue, Denies fever(s), Denies frequent falls, Denies weakness, Denies weight gain and Denies weight loss ENT Denies dizziness Card Details: intermittent chest discomfort at rest Denies chest pain, Reports chest pain at rest, Denies chest pain with activity, Denies leg edema, Denies lightheadedness, Denies palpitations, Denies dyspnea and Denies dyspnea on exertion Resp Denies cough, Denies dyspnea and Denies dyspnea on exertion GI Denies hematochezia Musc Denies abnormal gait, Denies muscle weakness, Denies numbness, Denies radiating pain into limb and Denies tingling Neuro Denies abnormal gait, Denies dizziness, Denies frequent falls, Denies numbness, Denies tingling and Denies weakness Endo Denies fatigue and Denies palpitations Physical Exam Vital Signs: Last Vital Signs Pulse 85 12/07/24 14:33 BP 140/80 H 12/07/24 14:33 BMI result Body Mass Index 27.0 Const General: cooperative, healthy appearing, comfortable and no acute distress Orientation/consciousness: patient oriented x3 Neck Neck: Yes normal visual inspection Resp Effort & Inspection: normal respiratory effort Auscultation: clear to auscultation bilaterally, no rales, no rhonchi and no wheezes Cardio Rate: regular rate Rhythm: regular rhythm Heart sounds: S1 normal heart sound present, S2 normal heart sound present, no murmurs and no rubs Neuro General: patient oriented x3 Extrem General: Yes normal to inspection, No no pedal edema and No calf tenderness Psych Appearance: grossly normal Mental Status: mental status grossly normal Speech and movement: Normal speech and movement present Assessment & Plan Assessment & Plan (1) Chest discomfort: Code(s): R07.89 - Other chest pain Category: Medical Plan: Reports of chest discomfort which do sound atypical for angina. No symptoms brought on by exertion. She does have multiple cardiac risk factors including hypertension, hyperlipidemia and diabetes. Echocardiogram done 10/09/2024 showed EF greater than 70%, normal RV, mildly calcific aortic valve, mildly dilated ascending aorta 3.8 cm. For completeness will check an exercise stress test to ensure there is no obvious ischemia. She says she will be able to walk on a treadmill. Plan to discuss results with her on the day of the test. Signs and symptoms of true angina reviewed with her. Emergency care if ever needed for symptoms. (2) Palpitation: Code(s): R00.2 - Palpitations Category: Medical Plan: Reports of heart palpitations. No sustained rapid or irregular rates. Her smart watch has told her she has irregular heartbeat at times, not recently. A 7 day Holter was done 06/05/2024 showing normal sinus rhythm, average heart rate 77, rare PACs and PVCs, no atrial fibrillation. She is already on metoprolol. At this time she tells me her heart palpitations have not increased. Reviewed good hydration, adequate rest, caffeine reduction, medication compliance. (3) Hypertension: Code(s): I10 - Essential (primary) hypertension Category: Medical Plan: Mildly elevated today. She is on metoprolol, losartan and hydrochlorothiazide. No med changes made. Reviewed low-salt diet. (4) Hyperlipidemia: Code(s): E78.5 - Hyperlipidemia, unspecified Category: Medical Plan: [place] LDL goal less than 70 in patient with diabetes. She is not on statin for unclear reason. This is followed by her PCP. (5) Type 2 diabetes mellitus: Code(s): E11.9 - Type 2 diabetes mellitus without complications Category: Medical Plan: Hemoglobin A1c goal less than 7. Followed by PCP. Plan Time spent on chart review, documentation, interview and assessment Orders: Orders CA stress test Today R00.2 - Palpitations, R07.89 - Other chest pain Coding Level of Care Code Est Pt Level 4 (91061) Complex EM visit Add On G2211 Diagnoses Chest discomfort R07.89 Palpitation R00.2 Hypertension I10 Hyperlipidemia E78.5 Type 2 diabetes mellitus E11.9 Time Spent (min) 36
--- OUTSIDE RECORDS SUMMARY | 2024-12-07 18:24 | XMS_ITS | Patient Health Record ---
[facility] Organization [facility] Address [address] [place] [address] Care Team Providers Care Restaurant Host Name Role Phone Beata Figueroa Primary Care Provider Mariella Barrios Unavailable [phone] Allergies Allergen (clinical drug ingredient) Drug/Non Drug Allergy documented on EMR Reaction Allergy Type Onset Date Status Bee Sting Unknown Allergy Active Penicillin Unknown Drug Allergy Active Substance with sulfonamide structure and antibacterial mechanism of action (substance) Sulfa Antibiotics Unknown Drug Allergy Active Reason For Referral No Information Medications Medication SIG (Take, Route, Frequency, Duration) Notes Start Date End Date Status Losartan Potassium 100 MG 1 tablet Orall y Once a day Active Metoprolol Tartrate 25 MG Orally Twice a day Active Cyclobenzaprine HCl 10 MG Orally Active hydroCHLOROthiazide 25 MG 1 tablet in th e morning Orally Once a day Active Stool Softener Laxative Active Omeprazole Unknown Vitamin C Active Probiotic Unknown [place] 3 Active Nasal Allergy Active Nabumetone 750 MG as directed Orally Twice a day for 10 days 07/16/2017 Unknown ZyrTEC Unknown Zantac Unknown Aspirin 81 MG Orally Active Calcium Not-Taking Allergy Active Social History Tobacco Use: Social History Observation Description Date Details (start date - stop date) Former Smoker NA - NA Tobacco Use/Smoking Question Answer Notes Are you a: former smoker When did you stop smoking? 1975 Additional Findings: Tobacco Non-User Current no n-smoker Alcohol Screen Question Answer Notes Did you have a drink contain ing alcohol in the past year? Yes How often did you have a dri nk containing alcohol in the past year? Monthly or less (1 point) How many drinks did you have on a typical day when you were drinking in the past year? 1 or 2 drinks (0 point) How often did you have 6 or more drinks on one occasion in the past year? Never (0 point) Points 1 Interpretation Negative Tobacco use other than smoking: Question Answer Notes Are you an other tobacco user? No Problems Problem Type SNOMED Code ICD Code Onset Dates Problem Status W/U Status Risk Notes Problem Acquired hallux valgus (87630549) Hallux valgus (acquired), left foot (M20.12) Active confirmed Problem Acquired hallux valgus (12848718) Hallux valgus (acquired), right foot (M20.11) Active confirmed Problem [id number] Neuropathy (G62.9) Active confirmed Plan Of Treatment Pending Test Test Name Order Date X ray : Foot, left 2V 07/16/2017 X ray : Foot, right 3V 07/16/2017 Insurance Providers Payer Name Payer Address Payer Phone Subscriber Number Group Number Insured Name Patient Relationship to Insured Coverage Start Date Coverage End Date BlueCare 65 Medicare Preferred [address] [place] [address] [id number] Polo Bell Self - patient is the insured Medical (General) History Medical History History ICD Code Angina Anxiety osteoarthritis Back,Hip,and Knee pain Broken bones CAD (Cholesterol) Cataracts Depression Fibromyalgia Headaches High blood pressure Numbness Osteoporosis Raynauds syndrome Reflux ( GERD) chronic sinusitis Warts Measles Mumps Osteopenia Hyperlipidemia Vitamin D deficiency Chondromalacia patella Surgical History Surgery Date(Month/Year) section 1981 tonsillectomy 1963
== END 2024-12-07 15:27 | disposition home or self-care (01) ==
PROVIDERS: PCP Internal Medicine; Visit Provider Nurse Practitioner Family
DX: R07.89 Other chest pain (principal); R00.2 Palpitations; I10 Essential (primary) hypertension; E78.5 Hyperlipidemia, unspecified; E11.9 Type 2 diabetes mellitus without complications
CPT/HCPCS: 99214; G2211

== ENCOUNTER → 2024-12-07 14:28 | Outpatient (BNVA) | payer MEDICARE, SELFPAY | PROVIDERS: PCP Internal Medicine; Visit Provider Nurse Practitioner Family | DX: R07.89 Other chest pain (principal); R00.2 Palpitations; I10 Essential (primary) hypertension; E78.5 Hyperlipidemia, unspecified; E11.9 Type 2 diabetes mellitus without complications | CPT/HCPCS: 99212 ==

== ENCOUNTER 2024-12-10 14:21 | Outpatient (AMB) | payer MEDICARE, SELFPAY ==
--- NOTE | 2024-12-10 14:24 | A.OFFVIS_ITS ---
Vital Signs 12/10/24 14:29 Height 5 ft 4 in Weight 158 lb 11.725 oz BMI 27.2 BP 120/78 Blood Pressure Location Rt brachial Position Sitting Pulse 71 Pulse Source Pulse Oximeter Intake Visit Reasons: T2DM Intake Note: Patient presents today for a follow-up on Type 2 Diabetes Mellitus: Last Diabetic Eye exam: 05/2024 Last Podiatry Exam: Does not see a Cocoa Bean Cleaner Most recent HbA1c: 5.7%, 12/10/2024 Random Glucose- 97 mg/dL, Today Black Powder Glazing Operator Required: No Accompanied by: Significant Other Allergies Penicillins Allergy (Unknown, Verified 12/10/24 14:30) Anaphylaxis bevacizumab [From Avastin] Adverse Reaction (Intermediate, Verified 12/10/24 14:30) Eye Swelling garcinia Allergy (Unknown, Uncoded 12/10/24 14:30) Rash HPI Comments Details: 79 YO female who is seen in consultation for T2DM. Hemoglobin A1c 09/15/2024 6%, 04/13 I I 24 6.8% Was initially started on treatment with diet and exercise. Current regimen diet and exercise. [facility] average glucose: 132 14 day continuous glucose monitor report reviewed Glucose Managment indicator 6.5 % Days with CGM data [ ] % TIme in ranges: 0 % very high (above 250) 6 % high ?(181-250) 94 % in range ?(70-180] 0 % low (69-55) 0 % ?very low (below 54) 20.5 Standard Deviation Interpretation of CGMS: Excellent control [Denies] nephropathy, on [ARB]. [does not have ] HLD, [Denies] CAD. Denies numbness,tingling, cramping of the lower extremities Diet: [Balanced, seeing outside dag coater] Weight: [Has lost 15 lb] [Has not had] diabetes education. Osteopenia She suffered 2 toe fractures when she bumped into a couch. She does exercise regularly. She takes a daily vitamin-D supplement and some dietary calcium in her diet. PFSH Medical History Type 2 diabetes mellitus Retinal vein occlusion Hypertension Hyperlipidemia GERD (gastroesophageal reflux disease) Fibromyalgia Attention deficit disorder of adult with hyperactivity Surgical History Cataract Hx of tonsillectomy H/O section Family History Father No problems noted. Mother Heart disease Lung cancer Paternal Grandfather HTN (hypertension) Parkinsons Maternal Grandmother Cancer Social History Alcohol intake: current Alcohol intake frequency: holidays/special occasions only Patient Tobacco Use Status: Former Tobacco user Tobacco use type: Cigarette Physical Exam Vital Signs: Last Vital Signs Pulse 71 12/10/24 14:29 BP 120/78 12/10/24 14:29 BMI result Body Mass Index 27.2 Results AMB Hemoglobin A1c AMB Hemoglobin A1c 5.7 % Last Edit by ROSE Romero on 12/10/24 14:42 Assessment & Plan Assessment & Plan Orders: Orders Calcium, 24 Hr Ur Today M85.80 - Other specified disorders of bone density and structure, unspecified site Creatinine, 24 Hr Group Today M85.80 - Other specified disorders of bone density and structure, unspecified site Collagen Crosslinks NTX Today E83.52 - Hypercalcemia Creatinine, 24 Hr Group 1 Week E83.52 - Hypercalcemia Protein Electrophoresis 24HrUr Today E83.52 - Hypercalcemia AMB Hemoglobin A1c Today E11.9 - Type 2 diabetes mellitus without complications Protein Electrophoresis 24HrUr 1 Week E83.52 - Hypercalcemia Calcium, 24 Hr Ur 1 Week E83.52 - Hypercalcemia Coding
[2024-12-10 14:29] VITALS: BP 120/78; PULSE 71; BMI 27.2
[2024-12-10 14:38] LABS: Glucose, Whole Blood 97 mg/dL (60-115)
== END 2024-12-10 15:12 | disposition home or self-care (01) ==
PROVIDERS: PCP Internal Medicine; Visit Provider Nurse Practitioner Adult Health
DX: E11.9 Type 2 diabetes mellitus without complications (principal)

== ENCOUNTER → 2024-12-10 14:21 | Outpatient (BNVA) | payer MEDICARE, SELFPAY | PROVIDERS: PCP Internal Medicine; Visit Provider Nurse Practitioner Adult Health | DX: M85.80 Other specified disorders of bone density and structure, unspecified site (principal); E11.9 Type 2 diabetes mellitus without complications | CPT/HCPCS: 82947; 83036; 99212 ==

== ENCOUNTER → 2025-02-05 09:29 | Outpatient (REF) | payer MEDICARE, SELFPAY ==
--- NOTE | 2025-02-05 09:32 | CA_ITS ---
Acquisition Time: 2025-02-05 09:39:04 Total Exercise Time: 00:05:01 Test Indications: CP, PALPITATIONS Medications: SEE H&P Protocol: TICO Max HR: 131 BPM 92% of Pred: 142 BPM Max BP: 186/78 mmHG Max Work Load: 7.0 METS Exercise Stress Test with exercise 5 mins 1 sec of Tico Protocol, achieving 91% MPHR, with reports of SOB and leg discomfort, without any arrythmias, with normotensive response to exercise. Without EKG changes meeting criteria for ischemia. In recovery, breathing returned to baseline. Test reviewed with Dr. Enrique. Referred By: Molly Jacobson Electronically Signed By: Hossein Nguyen
--- OUTSIDE RECORDS SUMMARY | 2025-02-05 10:22 | XMS_ITS | Patient Health Record ---
[facility] Address [address] [place] [address] Care Team Providers Care Parts Clerk Name Role Phone Beata Figueroa Primary Care Provider Mariella Barrios Unavailable [phone] Allergies Allergen (clinical drug ingredient) Drug/Non Drug [...] Omeprazole Unknown Vitamin C Active Probiotic Unknown [place] 3 Active Nasal Allergy Active Nabumetone 750 [...] Status Risk Notes Problem Acquired hallux valgus ([id number]) Hallux valgus (acquired), left foot (M20.12) Active confirmed Problem Acquired hallux valgus (50751093) Hallux valgus (acquired), right foot (M20.11) Active confirmed Problem [id number] Neuropathy (G62.9) Active confirmed Plan Of Treatment Pending Test Test Name Order Date X ray : Foot, left 2V 07/16/2017 X ray : Foot, right 3V 07/16/2017 Insurance Providers Payer Name Payer Address Payer Phone Subscriber Number Group Number Insured Name Patient Relationship to Insured Coverage Start Date Coverage End Date BlueCare 65 Medicare Preferred [address] [place] [address] [phone] [id number] Polo Bell Self - patient is the [...]
== END ==
LOC: HO.CARD 09:29
PROVIDERS: PCP Internal Medicine; Visit Provider Nurse Practitioner Family
DX: R07.89 Other chest pain (principal); R00.2 Palpitations
CPT/HCPCS: 93017

== ENCOUNTER → 2025-02-05 09:32 | Outpatient (BNV) | payer MEDICARE, SELFPAY | PROVIDERS: PCP Internal Medicine | DX: R06.02 Shortness of breath (principal) | CPT/HCPCS: 93016; 93018 ==

== ENCOUNTER 2025-02-18 13:00 | Outpatient (AMB) | payer MEDICARE, SELFPAY ==
--- NOTE | 2025-02-18 13:03 | MHC.OFFVIS ---
Vital Signs 02/18/25 13:05 Height 5 ft 4 in Weight 157 lb 13.616 oz BMI 27.1 BP 130/62 Blood Pressure Location Lt brachial Position Sitting Pulse 78 Pulse Source Pulse Oximeter Intake Visit Reasons: Follow up Stress tests Precision Grinder External Required: No Accompanied by: Significant Other Allergies Penicillins Allergy (Unknown, Verified 12/10/24 14:30) Anaphylaxis bevacizumab [From Avastin] Adverse Reaction (Intermediate, Verified 12/10/24 14:30) Eye Swelling garcinia Allergy (Unknown, Uncoded 12/10/24 14:30) Rash Medication List - Last Reconciled 02/18/25 by Braxton Enrique MD biotin 5 mg PO DAILY cetirizine (Zyrtec) 10 mg PO DAILY PRN cyclobenzaprine 10 mg PO TID PRN cyclosporine 0.05% (Restasis) 1 drp ophthalmic (eye) Q12H docusate sodium (Stool Softener) 100 mg PO BID hydrochlorothiazide 25 mg PO DAILY losartan 100 mg PO DAILY metoprolol succinate ER 50 mg PO DAILY [omega 7 PO DAILY] sennosides (senna) 8.6 mg PO DAILY HPI Comments Details: Polo returns for follow-up. Recently seen in consultation regarding palpitations. She underwent a Holter monitor through her own PCP and that showed supraventricular/ventricular ectopy but low burden. Otherwise, no known cardiac history. No known coronary disease myocardial infarction or cardiomyopathy. She has hypertension on medications. Diabetic on metformin. She states that she gets random episodes of heartburn, left arm discomfort extra at different times but nothing clearly sounding exertional angina. She believes she has acid reflux but that has been a long-term issue. Overall, no concerning cardiac complaints. COUNTS INCLUDE 234 BEDS AT [facility] Medical History (Updated 12/10/24 @ 14:43 by Maria Luisa Rasmussen NP) Hypercalcemia Type 2 diabetes mellitus Retinal vein occlusion Hypertension Hyperlipidemia GERD (gastroesophageal reflux disease) Fibromyalgia Attention deficit disorder of adult with hyperactivity Surgical History Cataract Hx of tonsillectomy H/O section Family History Father No problems noted. Mother Heart disease Lung cancer Paternal Grandfather HTN (hypertension) Parkinsons Maternal Grandmother Cancer Social History Alcohol intake: current Alcohol intake frequency: holidays/special occasions only Patient Tobacco Use Status: Former Tobacco user Tobacco use type: Cigarette Review of Systems Const Denies chills, Denies fatigue, Denies fever(s), Denies frequent falls, Denies weakness, Denies weight gain and Denies weight loss ENT Denies dizziness Card Denies chest pain, Denies leg edema, Denies lightheadedness, Denies palpitations, Denies dyspnea and Denies dyspnea on exertion Resp Denies cough, Denies dyspnea and Denies dyspnea on exertion GI Denies hematochezia Musc Denies abnormal gait, Denies muscle weakness, Denies numbness, Denies radiating pain into limb and Denies tingling Neuro Denies abnormal gait, Denies dizziness, Denies frequent falls, Denies numbness, Denies tingling and Denies weakness Endo Denies fatigue and Denies palpitations Physical Exam Vital Signs: Last Vital Signs Pulse 78 02/18/25 13:05 BP 130/62 02/18/25 13:05 BMI result Body Mass Index 27.1 Const General: comfortable and no acute distress Orientation/consciousness: patient oriented x3 HEENT Other: Unremarkable Head: Yes normal to inspection Neck Neck: Yes normal visual inspection Chest Chest palpation & inspection: normal inspection of the chest Resp Auscultation: clear to auscultation bilaterally Cardio Palpation: normal PMI Heart sounds: S1 normal heart sound present, S2 normal heart sound present, no gallops, no murmurs and no rubs GI Palpation (GI): Soft to palpation Back/Spine/Pelvis Other: unremarkable Skin General skin exam: no rashes or lesions noted Neuro General: patient oriented x3 Extrem General: Yes normal to inspection Psych Mental Status: mental status grossly normal Assessment & Plan Assessment & Plan (1) Atrial arrhythmia: Code(s): I49.8 - Other specified cardiac arrhythmias Category: Medical Plan: In the Holter monitor, underlying rhythm is sinus. There is evidence of sinus tachycardia and low burden PACs/PVCs. In the echocardiogram, hyperdynamic LVEF. Mild aortic valve calcification. Ascending aortic size borderline at 3.8 cm. In the stress test, she was able to exercise for 7 METS on Gelacio protocol. Reached 91% of max predicted heart rate. Shortness of breath and leg discomfort but no arrhythmias normal blood pressure response to exercise. No EKG evidence of ischemia. Continue beta-blockers without changes. (2) Hypertension: Code(s): I10 - Essential (primary) hypertension Category: Medical Plan: She is on metoprolol, losartan, hydrochlorothiazide. Blood pressure seems stable. No changes. Plan Total time spent including review of data, counseling, documentation, coordination of care-32 minutes. Orders: Orders ECG 7 day holter monitor 6 Months R00.2 - Palpitations Coding Level of Care Code Est Pt Level 4 (65563) Diagnoses Atrial arrhythmia I49.8 Hypertension I10
[2025-02-18 13:05] VITALS: BP 130/62; PULSE 78; BMI 27.1
--- OUTSIDE RECORDS SUMMARY | 2025-02-18 16:02 | XMS_ITS | Patient Health Record ---
[facility] Address [address] [place] [address] Care Team Providers Care Car Mechanic Name Role Phone Beata Figueroa Primary Care Provider Mariella Barrios Unavailable [phone] Allergies Allergen (clinical drug ingredient) Drug/Non Drug [...] Omeprazole Unknown Vitamin C Active Probiotic Unknown [place] 3 Active Nasal Allergy Active Nabumetone 750 [...] Status Risk Notes Problem Acquired hallux valgus (01843852) Hallux valgus (acquired), left foot (M20.12) Active confirmed Problem Acquired hallux valgus (62576353) Hallux valgus (acquired), right foot (M20.11) Active confirmed Problem 038484446 Neuropathy (G62.9) Active confirmed Plan Of Treatment Pending Test Test Name Order Date X ray : Foot, left 2V 07/16/2017 X ray : Foot, right 3V 07/16/2017 Insurance Providers Payer Name Payer Address Payer Phone Subscriber Number Group Number Insured Name Patient Relationship to Insured Coverage Start Date Coverage End Date BlueCare 65 Medicare Preferred [address] [place] [address] [id number] Polo Bell Self - patient is the [...]
== END 2025-02-18 13:27 | disposition home or self-care (01) ==
LOC: HO.HCS 13:01
PROVIDERS: PCP Internal Medicine; Visit Provider Internal Medicine
DX: I49.8 Other specified cardiac arrhythmias (principal); I10 Essential (primary) hypertension
CPT/HCPCS: 99214

== ENCOUNTER → 2025-02-18 13:00 | Outpatient (BNVA) | payer MEDICARE, SELFPAY | PROVIDERS: PCP Internal Medicine; Visit Provider Internal Medicine | DX: I49.8 Other specified cardiac arrhythmias (principal); I10 Essential (primary) hypertension | CPT/HCPCS: 99212 ==

== ENCOUNTER 2025-03-11 15:06 | Outpatient (AMB) | payer MEDICARE, SELFPAY ==
--- NOTE | 2025-03-11 14:34 | MHC.OFFVIS ---
Vital Signs 03/11/25 15:07 Height 5 ft 4 in Weight 159 lb 9.835 oz BMI 27.4 BP 120/72 Blood Pressure Location Rt brachial Position Sitting Pulse 98 Pulse Source Pulse Oximeter Pulse Oximetry (%) 99 Oxygen Delivery Method Room Air Intake Visit Reasons: T2DM Intake Note: Patient presents today for a follow-up on Type 2 Diabetes Mellitus: Last Diabetic Eye exam: 05/2024 Last Podiatry Exam: Does not see a Automotive Center Manager Most recent HbA1c:5.2% Random Glucose- 213 mg/dL, Today Information Coder Required: Yes Accompanied by: Spouse Allergies Penicillins Allergy (Unknown, Verified 12/10/24 14:30) Anaphylaxis bevacizumab [From Avastin] Adverse Reaction (Intermediate, Verified 12/10/24 14:30) Eye Swelling garcinia Allergy (Unknown, Uncoded 12/10/24 14:30) Rash Medication List - Last Reconciled 03/11/25 by Maria Luisa Rasmussen NP biotin 5 mg PO DAILY cetirizine (Zyrtec) 10 mg PO DAILY PRN cyclobenzaprine 10 mg PO TID PRN cyclosporine 0.05% (Restasis) 1 drp ophthalmic (eye) Q12H docusate sodium (Stool Softener) 100 mg PO BID ergocalciferol (vitamin D2) 1,000 units PO DAILY FreeStyle Smiley 2 Plus Sensor (blood-glucose sensor) As directed changed every 15 days NS hydrochlorothiazide 25 mg PO DAILY losartan 100 mg PO DAILY metoprolol succinate ER 50 mg PO DAILY [omega 7 PO DAILY] sennosides (senna) 8.6 mg PO DAILY HPI Comments Details: 79 YO female who is seen in f/u for T2DM. Hemoglobin A1c 03/11/25 %, 09/15/2024 6%, 04/13 I I 24 6.8% Was initially started on treatment with diet and exercise. Current regimen diet and exercise. Freestyle smiley sensor 3 average glucose: [ ] 14 day continuous glucose sensor report reviewed Glucose Management indicator [ ] % Time CGM active [ ] % TIme in ranges: [ ] % very high (above 250) [ ] % high (181-250) [ ] % in range (70-180] [ ] % low (69-55) [ ] % very low (below 54) [ ] Glucose variability [ ] (target <36%) Interpretation of CGMS [ ] Interpretation of CGMS: Excellent control Denies retinopathy Denies numbness, tingling, cramping, pain of the lower extremeties. No nephropathy, on ARB Does not have HLD Denies CAD. Diet: Balanced, seeing outside teacher adult education Weight: Has lost 15 lb since starting with teacher adult education, weight today unchanged from previous visit. [Has not had] diabetes education. Osteopenia Had prior dexa with osteopenia -2.2 frax 6.8 hip She declined any treatment last visit. She suffered 2 toe fractures when she bumped into a couch. She does exercise regularly. She takes a daily vitamin-D supplement and some dietary calcium in her diet. Has h/o elevated calcium 10.6 with normal albumin 05/2024 no h/o stones no family h/o hyper calcemia PFSH Medical History Hypercalcemia Type 2 diabetes mellitus Retinal vein occlusion Hypertension Hyperlipidemia GERD (gastroesophageal reflux disease) Fibromyalgia Attention deficit disorder of adult with hyperactivity Surgical History Cataract Hx of tonsillectomy H/O section Family History Father No problems noted. Mother Heart disease Lung cancer Paternal Grandfather HTN (hypertension) Parkinsons Maternal Grandmother Cancer Social History Alcohol intake: current Alcohol intake frequency: holidays/special occasions only Patient Tobacco Use Status: Former Tobacco user Tobacco use type: Cigarette Physical Exam Vital Signs: Last Vital Signs Pulse 98 03/11/25 15:07 BP 120/72 03/11/25 15:07 Pulse Ox 99 03/11/25 15:07 Oxygen Delivery Method Room Air 03/11/25 15:07 BMI result Body Mass Index 27.4 Results AMB Hemoglobin A1c AMB Hemoglobin A1c 5.2 % Last Edit by ROSE Miranda on 03/11/25 16:08 Results Reviewed Results Reviewed: Laboratory Last Values Glucose (Clinic) 172 mg/dL (60-115) H 03/11/25 15:21 Hgb A1c (Clinic) 5.2 % (4.0-6.0) 03/11/25 16:07 Assessment & Plan Assessment & Plan Orders: Orders AMB Hemoglobin A1c Today E11.9 - Type 2 diabetes mellitus without complications Coding
[2025-03-11 15:07] VITALS: BP 120/72; PULSE 98; O2SAT 99; BMI 27.4
[2025-03-11 15:25] LABS: Glucose, Whole Blood 172 mg/dL (60-115)
--- OUTSIDE RECORDS SUMMARY | 2025-03-11 17:52 | XMS_ITS | Patient Health Record ---
Author [facility] Address [address] [place] [address] Care Team Providers Care Embossing Unit Operator Name Role Phone Beata Figueroa Primary Care Provider Mariella Barrios Unavailable [phone] Allergies Allergen (clinical drug ingredient) Drug/Non Drug [...] Omeprazole Unknown Vitamin C Active Probiotic Unknown [place] 3 Active Nasal Allergy Active Nabumetone 750 [...] Status Risk Notes Problem Acquired hallux valgus (04948894) Hallux valgus (acquired), left foot (M20.12) Active confirmed Problem Acquired hallux valgus (53292309) Hallux valgus (acquired), right foot (M20.11) Active confirmed Problem 443516706 Neuropathy (G62.9) Active confirmed Plan Of Treatment Pending Test Test Name Order Date X ray : Foot, left 2V 07/16/2017 X ray : Foot, right 3V 07/16/2017 Insurance Providers Payer Name Payer Address Payer Phone Subscriber Number Group Number Insured Name Patient Relationship to Insured Coverage Start Date Coverage End Date BlueCare 65 Medicare Preferred [address] [place] [address] [id number] Polo Bell Self - patient is the [...]
== END 2025-03-11 16:10 | disposition home or self-care (01) ==
LOC: HO.ENCR 15:06
PROVIDERS: PCP Internal Medicine; Visit Provider Nurse Practitioner Adult Health
DX: E11.9 Type 2 diabetes mellitus without complications (principal)

== ENCOUNTER → 2025-03-11 15:06 | Outpatient (BNVA) | payer MEDICARE, SELFPAY | PROVIDERS: PCP Internal Medicine; Visit Provider Nurse Practitioner Adult Health | DX: E11.9 Type 2 diabetes mellitus without complications (principal) | CPT/HCPCS: 82947; 83036 ==

== ENCOUNTER 2025-05-07 13:56 | Outpatient (REF) | payer MEDICARE, SELFPAY ==
--- OUTSIDE RECORDS SUMMARY | 2025-05-07 13:58 | XMS_ITS | Patient Health Record ---
Author [facility] Address [address] [place] [address] Care Team Providers Care Financial Management Consultant Name Role Phone Beata Figueroa Primary Care Provider Mariella Barrios Unavailable [phone] Allergies Allergen (clinical drug ingredient) Drug/Non Drug [...] Omeprazole Unknown Vitamin C Active Probiotic Unknown [place] 3 Active Nasal Allergy Active Nabumetone 750 [...] Status Risk Notes Problem Acquired hallux valgus (31681097) Hallux valgus (acquired), left foot (M20.12) Active confirmed Problem Acquired hallux valgus (47960778) Hallux valgus (acquired), right foot (M20.11) Active confirmed Problem 498312696 Neuropathy (G62.9) Active confirmed Plan Of Treatment Pending Test Test Name Order Date X ray : Foot, left 2V 07/16/2017 X ray : Foot, right 3V 07/16/2017 Insurance Providers Payer Name Payer Address Payer Phone Subscriber Number Group Number Insured Name Patient Relationship to Insured Coverage Start Date Coverage End Date BlueCare 65 Medicare Preferred [address] [place] [address] [id number] Polo Bell Self - patient is the [...]
[2025-05-07 14:46] LABS: Albumin Level 4.7 g/dL (3.5-5.0); Calcium 9.7 mg/dL (8.4-10.2)
[2025-05-07 15:06] LABS: Vitamin D 25-OH Total 41.1 ng/mL (>30)
[2025-05-09 20:48] LABS: Calcium, 24 Hr Urine 230 mg/24 h; Calcium/Creatinine Ratio 216 mg/g creat (30-275); Creatinine 24Hr Urine 1.06 g/24 h (0.50-2.15)
[2025-05-11 15:38] LABS: Alkaline Phosphatase Bone 6.5 mcg/L (see note)
== END 2025-05-07 13:57 | disposition home or self-care (01) ==
LOC: HO.LAB 13:56
PROVIDERS: PCP Internal Medicine; Visit Provider Nurse Practitioner Adult Health
DX: E83.52 Hypercalcemia (principal)
CPT/HCPCS: 36415; 82040; 82306; 82310; 82340; 84075

== ENCOUNTER → 2025-09-02 13:39 | Outpatient (REF) | payer MEDICARE, SELFPAY ==
--- NOTE | 2025-09-02 13:44 | HM_ITS ---
Conclusion: 1. Patient was monitored for total period of 6 days and 7 hours 2. Baseline was normal sinus rhythm with average heart of 76 beats per minute 3. Rare PACs noted with total burden of 0.02% without any tachyarrhythmias 4. No significant pauses noted 5. Patient marked the counter 1 time with symptoms of irregular heartbeat correlating with normal sinus rhythm MTDD
== END ==
LOC: HO.CARD 13:39
PROVIDERS: Visit Provider Internal Medicine
DX: R00.2 Palpitations (principal)
CPT/HCPCS: 93242

== ENCOUNTER → 2025-09-02 13:44 | Outpatient (BNV) | payer MEDICARE, SELFPAY | PROVIDERS: Visit Provider Internal Medicine Cardiovascular Disease | DX: I49.1 Atrial premature depolarization (principal) | CPT/HCPCS: 93244 ==

== ENCOUNTER 2025-09-28 13:23 | Outpatient (AMB) | payer MEDICARE, SELFPAY ==
--- NOTE | 2025-09-28 13:31 | A.OFFVIS_ITS ---
Vital Signs 09/28/25 13:35 Height 5 ft 4 in Weight 154 lb 5.177 oz BMI 26.5 BP 130/70 Blood Pressure Location Rt brachial Position Sitting Pulse 82 Pulse Source Monitor Intake Visit Reasons: 6 mth f/up-holter Registered Associate Required: No Accompanied by: Self / Same As Patient Allergies Penicillins Allergy (Unknown, Verified 12/10/24 14:30) Anaphylaxis bevacizumab (From Avastin) Adverse Reaction (Intermediate, Verified 12/10/24 14:30) Eye Swelling garcinia Allergy (Unknown, Uncoded 12/10/24 14:30) Rash Medication List - Last Reconciled 09/28/25 by Braxton Enrique MD biotin 5 mg PO DAILY cetirizine (Zyrtec) 10 mg PO DAILY PRN cyclobenzaprine 10 mg PO TID PRN cyclosporine 0.05% (Restasis) 1 drp ophthalmic (eye) Q12H docusate sodium (Stool Softener) 100 mg PO BID ergocalciferol (vitamin D2) 1,000 units PO DAILY FreeStyle Smiley 2 Plus Sensor (blood-glucose sensor) As directed changed every 15 days NS hydrochlorothiazide 25 mg PO DAILY losartan 100 mg PO DAILY metoprolol succinate ER 50 mg PO DAILY [omega 7 PO DAILY] sennosides (senna) 8.6 mg PO DAILY HPI Comments Details: Polo returns for follow-up. Previously seen in consultation regarding palpitations. She underwent a Holter monitor through her own PCP and that showed supraventricular/ventricular ectopy but low burden. Otherwise, no known cardiac history. No known coronary disease myocardial infarction or cardiomyopathy. She has hypertension on medications. Diabetic on metformin. Overall, she still feels some palpitations but particularly worrisome. These episodes seem to be fairly brief and lasting only for a few seconds. She recently underwent Holter monitor for 1 week but apparently no episodes at that time. [facility] Medical History Hypercalcemia Type 2 diabetes mellitus Retinal vein occlusion Hypertension Hyperlipidemia GERD (gastroesophageal reflux disease) Fibromyalgia Attention deficit disorder of adult with hyperactivity Surgical History Cataract Hx of tonsillectomy H/O section Family History Father No problems noted. Mother Heart disease Lung cancer Paternal Grandfather HTN (hypertension) Parkinsons Maternal Grandmother Cancer Social History Alcohol intake: current Alcohol intake frequency: holidays/special occasions only Patient Tobacco Use Status: Former Tobacco user Tobacco use type: Cigarette Review of Systems Const Denies chills, Denies fatigue, Denies fever(s), Denies frequent falls, Denies weakness, Denies weight gain and Denies weight loss ENT Denies dizziness Card Denies chest pain, Denies leg edema, Denies lightheadedness, Reports palpitations, Reports dyspnea, Reports dyspnea on exertion and Reports orthopnea Resp Denies cough, Reports dyspnea and Reports dyspnea on exertion GI Denies hematochezia Musc Denies abnormal gait, Denies muscle weakness, Denies numbness, Denies radiating pain into limb and Denies tingling Neuro Denies abnormal gait, Denies dizziness, Denies frequent falls, Denies numbness, Denies tingling and Denies weakness Endo Denies fatigue and Reports palpitations Physical Exam Vital Signs: Last Vital Signs Pulse 82 09/28/25 13:35 BP 130/70 09/28/25 13:35 BMI result Body Mass Index 26.5 Const General: comfortable and no acute distress Orientation/consciousness: patient oriented x3 HEENT Other: Unremarkable Head: Yes normal to inspection Neck Neck: Yes normal visual inspection Chest Chest palpation & inspection: normal inspection of the chest Resp Auscultation: clear to auscultation bilaterally Cardio Palpation: normal PMI Heart sounds: S1 normal heart sound present, S2 normal heart sound present, no gallops, no murmurs and no rubs GI Palpation (GI): Soft to palpation Back/Spine/Pelvis Other: unremarkable Skin General skin exam: no rashes or lesions noted Neuro General: patient oriented x3 Extrem General: Yes normal to inspection Psych Mental Status: mental status grossly normal Office Procedures EKG Details: EKG with underlying sinus rhythm at 82/Min; no ischemic changes; [place] [id number], Complete Assessment & Plan Assessment & Plan (1) Atrial arrhythmia: Code(s): I49.8 - Other specified cardiac arrhythmias Category: Medical Plan: In the most recent Holter monitor, underlying rhythm is sinus; low burden PACs. Previously, evidence of sinus tachycardia, low burden PACs/PVCs. In the echocardiogram, hyperdynamic LVEF. Mild aortic valve calcification. Ascending aortic size borderline at 3.8 cm. In the stress test, she was able to exercise for 7 METS on Gelacio protocol. Reached 91% of max predicted heart rate. Shortness of breath and leg discomfort but no arrhythmias normal blood pressure response to exercise. No EKG evidence of ischemia. Continue beta-blockers without changes. If there is any persistent or prolonged palpitations advised her to contact us. That might raise the question of atrial fibrillation but nothing of concern at this time. (2) Hypertension: Code(s): I10 - Essential (primary) hypertension Category: Medical Plan: She is on metoprolol, losartan, hydrochlorothiazide. Blood pressure seems stable. No changes. Plan Discussion Notes I discussed with the patient that her heart function is normal and that the brief arrhythmia episodes are likely benign. I advised that if the episodes become more frequent or last longer, she should contact me for further evaluation. We also discussed the option of using a heart monitor for a longer period if necessary. Patient was informed and verbally consented to the use of an ambient scribe for clinic note documentation during this visit. Total time spent including review of data, counseling, documentation, coordination of care-32min. Orders: Orders ECG 14 day holter monitor 1 Year I49.8 - Other specified cardiac arrhythmias Patient Instructions: - Monitor your symptoms and note any changes in frequency or duration. - Contact the doctor if episodes become more frequent or last longer than a few minutes. - Consider using a heart monitor for a longer period if symptoms persist. Coding Level of Care Code Est Pt Level 4 (84947) Complex EM visit Add On G2211 Diagnoses Atrial arrhythmia I49.8 Hypertension I10 CPT Codes EKG - CPT: 17097-[id number], Complete ([id number])
[2025-09-28 13:35] VITALS: BP 130/70; PULSE 82; BMI 26.5
--- OUTSIDE RECORDS SUMMARY | 2025-09-28 16:17 | XMS_ITS | Patient Health Record ---
[facility] Address [address] [place] [address] Care Team Providers Care Net Washer Name Role Phone Beata Figueroa Primary Care Provider Mariella Barrios Unavailable [phone] Allergies Allergen (clinical drug ingredient) Drug/Non Drug [...] Omeprazole Unknown Vitamin C Active Probiotic Unknown [place] 3 Active Nasal Allergy Active Nabumetone 750 MG as directed Orally Twice a day; Duration: 10 days 07/16/2017 Unknown ZyrTEC Unknown Zantac [...] Status Risk Notes Problem Acquired hallux valgus (91302510) Hallux valgus (acquired), left foot (M20.12) Active confirmed Problem Acquired hallux valgus (21945098) Hallux valgus (acquired), right foot (M20.11) Active confirmed Problem Neuropathy (340813096) Neuropathy (G62.9) Active confirmed Plan Of Treatment Pending Test Test Name Order Date X ray : Foot, left 2V 07/16/2017 X ray : Foot, right 3V 07/16/2017 Insurance Providers Payer Name Payer Address Payer Phone Subscriber Number Group Number Insured Name Patient Relationship to Insured Coverage Start Date Coverage End Date [employer] 65 Medicare Preferred [address] [place] [address] [phone] [id number] Polo Bell Self - patient is the [...]
--- OUTSIDE RECORDS SUMMARY | 2025-09-28 16:17 | XMS_ITS | Data Portability ---
Author Organization [place] [facility] Address [address] [place] [id number] Care Team Providers Care Deburrer Strip Name Role Phone RUSSEL FRANCO Primary Care Provider [phone] Assessment Encounter Date Assessment Date Assessment LastModified by Organization Details LastModified Time 08/13/2021 08/13/2021 Overview/History : 75 yo with PMH HTN, IFG, ADHD and Fibbrmyalgia who c/o erractic heart beat for 12 hr the previous day and intermittent today but none during time of visit. Exam: PE unremarkable overall DDx considered, but not limited to: PAF, PSVT, PVCs, ACS, dehydration, anemia Unlikely PAF, PSVT, PVCs EKG is RSR Unlikely ACS, based on presentation as well as, no ischemic changes on EKG noted, no chest pain/tightness or SOB, No current symptoms, Unlikely dehydration as patient taking fluids well unlikely anemia as patient has normal skin color and VSS Work up/Results: EKG done - RSR in the 80s Plan/Discussion: 1. Likely tachycardia which may have been in reaction to recent stressors which has improved since previous day. Discussed results of EKG with patient showing RSR at this time. Advised to contact her PCP for possible Holter/Event monitor. Reviewed ER precautions with patient including calling 911 for any return of erratic heart rate, chest pain/pressure, N/V, SOB or dizziness. Also encouraged patient to stay hydrated and to avoid caffeine, antihistamines and decongestants until further evaluation. In order to obtain further information and compare any laboratory results/values, I have accessed patient records on the [employer]. This information was pertinent in my medical decision making today. [email or web address] Not available 08/13/2021 15:17:28 09/22/2021 09/22/2021 Proper Personal Protective Equipment (PPE), including gloves, gown, shoe covers, eye protection and masks were donned and doffed appropriately and all equipment cleaned using approved technique with germicidal disposable wipes prior to and after care of this patient according to [facility]'s infection prevention protocols. Overview/History: 76 yo female with PMHx of Depression, HLD HTN, Fibromyalgia, Hx of UTIs, seasonal allergies. She endorses unrelated intermittent episodes of fast heart rate dysrythmia, profuse sweating and daily episodes of feeling nauseated w/o vomiting, irregular bowl movement, takes colace. She denies any any acutely new cough, sore throat, chest pain, abdominal pain, vomiting, diarrhea, Last BM on Saturday. Exam: elevated SBP in the 160s on recheck at end of visit down into the 140s CV: Normal HR, no rubs/ murmurs/ gallops heard, 2+ radial pulses bilaterally, no edema, 2+ DP/ PT pulses bilaterally Pulm: breath sounds clear and equal bilaterally, no wheeze/ rhonchi or rales on auscultation. Speaks in full sentences, no increased work of breathing. GI: Soft, non-tender to palpation. No masses, normal bowel sounds. : No CVA tenderness bilaterally. MS: Self ambulatory patient, moves all limbs without deficit, no evidence of trauma Neuro: No focal deficits, patient GCS- 456, CN s II-XII grossly normal Skin: No rash Psych: Calm, cooperative, non-manic DDx considered, but not limited to: medication side effect most likely with known common side effect to atomoxetine includes: DIOR, nausea, tachycardia, symptomatic cardiac dysrhythmia possible, ischemic CP/ACS not likely with no reported typical or atypical symptoms of ACS reported. Work up/Results: Plan/Discussion: most likely diagnosis is medication side effect wtih atomoxetine 60mg PO QD. Patient's symptoms of are all possible common side effects of atomoxetine. I strongly suggested she not stop any medications without discussing it with the prescriber first. Recommended she discuss before starting any new medications to include herbal or OTC medications with her PCP. Discussed ED precautions to include for acute symptoms of chest pain, acute shortness of breath, severe weakness, fevers of 101.5 or greater, mental status changes, severe unrelieved headaches, inability to eat, drink, or walk. Pt verbalized understanding of all instructions provided In order to obtain further information and compare any laboratory results/values, I have accessed patient records on the [employer]. This information was pertinent in my medical decision making today. [email or web address] Not available 09/25/2021 21:11:22 10/09/2021 10/09/2021 Overview/History : 76 y/o F with hx of HTN, HLD, and Depression, known to but new to provider, is seeking further evaluation for left leg pain and left ribcage pain x 2 weeks. The patient states that on 09/25/2021 she experienced a fall where she landed on her left side. She went to an urgent care called [facility] where she had xrays performed. It was found at that time that the patient had a nondisplaced fracture in the anterior surface of the left 7th rib. A few days later, the patient received a call from the urgent care who made her aware that she also had a subtle nondisplaced fracture in the distal fibular shaft. The patient states that her rib pain has almost completely resolved. The patient had called today for education on how to proceed with her left distal fibular fracture. The patient was not given any information by the urgent care on how to deal with her fracture. The patient has been ambulatory on her lower extremity with very minimal pain, but has had some bruising and swelling present. Patient has not taken any medicine. Exam: AAOx3 elderly female, but otherwise non-toxic appearing, in no acute distress, ambulatory Head: NC/AT (+) moist mucous membranes Heart: RRR with no murmurs, rubs or gallops Chest: (+) minimal tenderness of anterior left 7th rib Lungs: CTABL with no ronchi, wheezes or rales present Abd: Soft, non-tender, non-distended Back: (-) CVA tenderness Extremities: mild edema of left anterior jaimes with (+) mild tenderness and ecchymosis of left anterior jaimes, (+) FROM of left knee and ankle, 2+ distal pulses, sensation equal and intact DDx considered, but not limited to: Left 7th rib fracture versus Left distal shaft fibular fracture versus Well healing fractures versus Non-union fractures Work up/Results: Patient is non-toxic appearing, in no acute distress. Patient is afebrile to 97.1. HR is 96. BP is 150/100. RR is 18. O2sat is 97% on RA. Patient has a known left 7th anterior rib fracture which patient states she has no pain from anymore. There was no pneumothorax noted during initial xray on 09/28. Lungs are CTABL. Patient also has a subtle non-displaced left distal fibular shaft fracture for which the patient has been ambulating on for the last 2 weeks. The patient has some mild edema and ecchymosis present, but has FROM of her left knee and ankle. No imaging deemed necessary as it was already performed at Urgent care. Plan/Discussion: Lengthy discussion was had with patient regarding her fractures. Left rib fracture appears to have improved as patient has no more pain in that area. Lungs are CTABL. Patient has been ambulatory and weight bearing on her left leg. She has FROM of her left knee and ankle, but has persistent swelling and ecchymosis. Advised patient that she should not be ambulatory/weight bearing on her left leg with a known fibular fracture. Advised that she needs to follow up with an orthopedist as soon as possible. Patient verbalized her understanding and states that she will follow up with the orthopedist that her uses. Advised to bring xray reports and CD with her to orthopedics so they can assess and re-evaluate. Advised to rest, ice, and elevate her lower extremity. No splint deemed necessary at this time, as patient will follow up with orthopedist that will likely put her in a boot. Advised to take Tylenol PRN for pain. Advised to call DH back for any worsening symptoms. Patient verbalized her understanding of the diagnosis and need for follow up with PCP, as well as ER/DH return precautions. In order to obtain further information and compare any laboratory results/values, I have accessed old patient records. This information was pertinent in my medical decision making today. Proper Personal Protective Equipment (PPE), including gloves, eye protection, N95 mask, gown, and shoe covers were donned and doffed appropriately and all equipment cleaned using approved technique with germicidal disposable wipes prior to and after care of this patient according to [facility] infection prevention protocols. Not available 10/09/2021 14:48:33 02/24/2023 02/24/2023 Brief Overview: 77 YO F new to provider but known to She is being seen today in her home for some cough and congestion Her is also present, I have met him before and seen him as a patient in the past at a different job Patient reports being at a last Saturday, she was worried she would be exposed to sick people there and she ended up developing sxs consistent w/ URI Saturday into Saturday. She is now on day 5 of sxs. She has been having fever, body aches, stuffy nose, sore throat and congestion. Sinuses feel backed up. She has been taking Tussin to help w/ cough w/ good effect. She has been taking Tylenol for fever w/ good effect as well. Nothing seems to make her sxs worse. She currently denies any SOB, chest pain, abd pain, NVD, urinary sxs, weakness, confusion, lethargy, cyanosis/pallor, severe headache, ear pain, visual changes. No other reported sxs at this time. Vital Signs: stable; fever of 100.6 F Exam: Vitals: VSS, fever of 100.6 F Constitutional: 77 yo Well developed, well nourished, pleasant patient in no apparent distress. Upright, comfortable and not toxic appearing. Eyes: PERRL at 4mm, EOM's intact, No swelling, no discharge, sclera / conjunctiva clear ENT: Mild tenderness to frontal sinuses, other sinuses not tender, no lymphadenopathy to the head or neck, Mild clear nasal dc BL, TMs/ Canals clear without evidence of infection, no erythema/ exudate noted in oropharynx, uvula and trachea midline, moist mucous membranes CV: RRR, no rubs/ murmurs/ gallops heard, 2+ radial pulses bilaterally, no edema and no calf tenderness BL, 2+ DP/ PT pulses bilaterally Pulm: breath sounds clear and equal bilaterally, no wheeze/ rhonchi or rales on auscultation. Speaks in full sentences, no increased work of breathing. GI: Soft, non-tender to palpation. No masses, normal bowel sounds. No guarding and no distension. Negative Baumann's sign. : No CVA tenderness bilaterally. No suprapubic tenderness. MS: Self ambulatory patient, moves all limbs without deficit, no evidence of trauma Neuro: No focal deficits, A&O x4, CN s II-XII grossly normal, gait is not ataxic Skin: No rash, no cyanosis/pallor, + cap refill, visible skin appears cdi. Psych: Calm, cooperative, non-manic. Pleasant. DDx considered, with rationale: CAP - no focal lung sounds, does have fever but no cough heard while on scene, generally not prod cough is c/o, I suspect viral syndrome but if she is not better in coming days she has doxy available at pharmacy that could cover for this issue Strep Throat - considered d/t c/o of sore throat, no exudates, + cough, no lymphadenopathy, unlikely, CENTOR criteria 0 points, no need to test COVID/Flu - doubtful, neg rapids, PCR pending to confirm no COVID RSV - no tachypnea, no sig breathing issues, doubtful Bronchitis - no wheezes, cough not severe, less likely VIral Syndrome w/ some sinusitis - ML cause of sxs today based on findings and sxs [email or web address] Not available 02/24/2023 18:35:54 Plan of Treatment Reminders Order Date Submit Date Provider Last Modified By Organization Details Last Modified Time Details Appointments None recorded. Lab unlisted lab - covid-19 (novel coronavirus ) PCR 2022 023 [facility] (Centralized Electronic Ordering - All Locations), Patient Can Go To The Location Of Their Choice, [id number] 3 12:12:09 rapid flu (A+B) 2022 023 [facility], [address] [place], [id number], 3 14:56:00 rapid SARS CoV 2 Ag, QL IA, respiratory specimen 2022 023 [facility], [address] [place], [address], 3 14:55:56 unlisted lab - covid-19 (novel coronavirus ) PCR 2021 022 [facility] (Centralized Electronic Ordering - All Locations), Patient Can Go To The Location Of Their Choice, [id number] 2 16:32:55 Referral None recorded. Procedures None recorded. Surgeries None recorded. Imaging None recorded. Medication Orders doxycycline hyclate 100 mg capsule 2022 [id number], [address], [place], [address], 3 18:22:49 Patient TargetsNo targets recorded. Patient Instructions Encounter Date Encounter Id Patient Instructions Last Modified By Organization Details Last Modified Time 08/13/2021 [id number] rhythm strip, EKG* pofodile Not availa ble 09/28/2021 21:08:43 10/09/2021 [id number] Thank you for yo ur visit with [facility] today. We cannot always find the exact cause of your symptoms during your initial visit. Please follow up with your primary care provider or specialist within 24-48 hours to be rechecked or seek medical attention if your symptoms do not go away or get worse. If you develop any new or worsening symptoms and need after hours care, please go to nearest ER and/or call 911. If you have additional concerns or develop a change in your condition between 8am-10pm, please call [facility] at [phone] to help navigate your care. Not available 10/09/2021 14:49:35 02/26/2022 [id number] Thank you for yo ur visit with [facility] today. Your child was examined today for fever. While most fevers are caused by viral illnesses, we cannot always exclude the possibility of a bacterial infection that may require treatment with antibiotics. Please have your child re-examined by a medical professional within 24 hours. Please seek immediate medical attention if your child develops signs of dehydration, vomiting, poor feeding, or abnormal drowsiness. If you develop any new or worsening symptoms and need after hours care, please go to nearest ER and/or call 911. If you have additional concerns or develop a change in your condition between 8am-10pm, please call [facility] at [phone] to help navigate your care. Acute Bronchitis Instructions BASIC INFORMATION Acute bronchitis is swelling and irritation in the air passages of your lungs. This irritation may cause you to cough or have other breathing problems. Acute bronchitis often starts because of another viral illness, such as a cold or the flu. The illness spreads from your nose and throat to your windpipe and airways. Bronchitis is often called a chest cold. Acute bronchitis lasts about 2 weeks and is usually not a serious illness. Most cases of bronchitis DO NOT require antibiotics. INSTRUCTIONS Medicines: Ibuprofen or acetaminophen: These medicines help lower a fever and treat aches. Refer to the bottles for proper dosing based on age and weight. Use as needed. Do not take either of these medicines for more than 3 days in a row. Prolonged use of Ibuprofen can hurt your kidney and stomach. Prolonged use of Tylenol can injure your liver. Cough medicine: Iuzs-jvd-fpahsfo (OTC) medicine helps loosen mucus in your lungs and make it easier to cough up. OTC cough medicine should NOT be used in children under age 3. Inhalers: You may need an inhaler to help you breathe easier and cough less. Inhalers help to relax the airways An inhaler gives medicine in a mist form so that you can breathe it into your lungs. If you were given an inhaler, take 2 puffs, four times per day for 2 days. After that, just use as needed for increased coughing, wheezing or tightness in chest. Steroid medicine: You may have been given prednisone or another steroid medication which helps open your air passages so you can breathe easier. Antibiotics: In most cases, antibiotics are not necessary for bronchitis. However, if your provider did prescribe these for you, please complete the entire course. You should also ask your pharmacist for a good rzlg-rfq-dunqxrx probiotic to take while you are on the antibiotic to help prevent antibiotic induced diarrhea. A good probiotic should have two species of live, active cultures. How to use an inhaler: 1) Shake the inhaler well to make sure you get the correct amount of medicine per puff. Remove the cover from your inhaler's mouthpiece. 2) Exhale as much air from your lungs as you can. Put the mouthpiece in your mouth, past your front teeth and rest it on the top of your tongue. Do not block the mouthpiece opening with your tongue. 3) Breathe in through your mouth at a slow and steady rate. As you do this, press the inhaler to release the puff of medicine. When your lungs are full, hold your breath for 10 seconds. Then breathe out slowly through puckered lips or through your nose. 4) If you need to take more puffs, wait at least 1 minute between each puff. 5) Using a spacer / air chamber ensures that you get the maximum amount of medicine from the inhaler. 6) Rinse your mouth with water after you use the inhaler. This may keep you from getting a mouth infection or irritation. 7) Follow the instructions that come with your inhaler to clean it. Self Care: 1) Do not smoke or allow others to smoke around you. Please call the [employer] Quit Line at to help in smoking cessation. Avoid chemicals, fumes, and dust. 2) Stay well hydrated 3) Seek care immediately if you: - develop a fever - develop a rash - become increasingly short of breath or you do not begin to improve 3-5 days (it may take 10 days for complete improvement) - cough up blood - have chest pain unrelated to coughing 4) Make appointment to follow up with you doctor within one week or sooner if directed by your [facility] provider. If you develop any new or worsening symptoms and need after hours care, please go to nearest ER and/or call 911. If you have additional concerns or develop a change in your condition between 8am-10pm, please [facility] at [phone] to help navigate your care. Influenza Discharge Instructions Basic Information Influenza is a viral infection of the nose, throat and lungs. It usually comes on suddenly. The most common symptoms are chills, headache, fever, sore throat, dry cough, body aches, weakness and fatigue. Occasionally, people will have vomiting and diarrhea. Influenza is spread when droplets from an infected person are coughed or sneezed into the air, allowing healthy persons to breathe in these fine droplets and become infected. A patient with influenza will have millions of flu viruses contaminating their hands and face as well. The influenza virus can live up for 2 days on objects such as door knobs, grocery cart handles, elevator buttons, telephones, table tops etc. It is highly contagious. In addition, symptoms of influenza do not start until 2 days after the virus enters the body, so an infected person is contagious before they know that they are sick. A flu patient remains contagious for 24 hours after fever ends. Since it is a virus, antibiotics do not help. Instructions Medications: -Ibuprofen (or other non steroidal antiinflammatory drugs) and Tylenol are very important to help with the body aches and fever. People with influenza will often run high fevers for 5 days straight. High fevers are a major cause of dehydration in influenza, so trying to control fever is very important. Be sure to carefully read the bottles for the correct dosing (especially in children) instructions. -Nausea medicine may be prescribed: use as directed -Antiviral medicine may be prescribed. It is important to know that although these medicines are advertised to shorten the course of influenza, studies show that they reduce length of symptoms by only about a day in adults and 1 day in children. Your provider will discuss whether this medicine is recommended for you. If it is prescribed, be sure to take the entire course as written. -Intravenous (IV) fluids: Your Provider may have determined that you need some IV fluids for your symptoms. IV fluids will help reduce fever and improve dehydration. Self Care: -Oral hydration. Drink plenty of fluids to stay hydrated. Fever itself can make you dehydrated so you really need to stay on top of this. Fluids such as broth and gatorade are recommended. -Solid food. You will very likely have a poor appetite for solid food: this is OK and as long as you can continue to take plenty of fluids, do not worry if you do not take solid food for a few days. -Rest. Get plenty of rest. Do not push yourself to do more than your body is telling you as this can make you sicker. -Prevent spread of the influenza. Cover your mouth and nose when you cough and sneeze. Try to maintain a 6 foot distance from others. Consider wearing a surgical mask, especially around family members who may have chronic illnesses. Wash your hands often. Don t leave dirty tissues around the home. Seek Care Immediately if you -develop very rapid breathing or shortness of breath -become pale -pass out -cannot tolerate liquids by mouth -develop chest pain -become confused -develop rash -become confused -and for children, if they become so irritable that they are inconsolable have total resolution of your symptoms after 5-7 days and then become sick again with fever or any of the above symptoms If you have additional concerns or develop a change in your condition between 8am-10pm, please call [facility] at [phone] to help navigate your care. Viral Illness Discharge Instructions BASIC INFORMATION A viral infection can range anywhere between a common cold and influenza. Most viruses will respond to a combination of time and supportive care. Viruses are eliminated by the bodies immune system and do not respond to antibiotics. Viruses can cause many different symptoms including runny stuffy nose, sore throat, headache, fever, body aches, cough, nausea, vomiting,diarrhea. Most of the viral illnesses are spread by hand to face contact, and the rest are spread through sneezing and coughing which releases virus into the air. Over the counter medications can help to relieve annoying symptoms. Occasionally having a virus may cause a secondary bacterial infection such as ear infections, pneumonia, sinusitis. INSTRUCTIONS Keeping your body as healthy as possible will help to limit your illness. Get plenty of rest Drink lots of fluids (water, herbal tea, gatorade) Reduce your risk of getting or giving a cold by avoiding touching your face with your hands. When you cough and sneeze cover your mouth/nose by placing your elbow or upper arm over the area rather than using your hand. Use a teaspoon of honey(avoid organic honey in infants and small children < 1 year) at bedtime to soothe your throat and ease cough. Sleep with head of bed elevated to promote drainage of secretions. Hot showers and humidifiers can help to loosen secretions. Tylenol over the counter can be helpful for aches and fever. Suck on hard, sugar-free candy during the day to keep the throat moist. MEDICATIONS Over the counter remedies are not recommended for young children, but can help relieve symptoms temporarily in adults. In general it is better to take only the medication you need rather than using combination products that contain ingredients that are unnecessary and may cause side effects. 1. Antihistamines (Benadryl, Chlor-Trimeton, Zyrtec, Claritin, Oriana) reduce secretions, but can cause drowsiness and sedation, do not drink alcohol or drive while taking these medications. 2. Decongestants (Phenylephrine, Sudafed) can help to shrink swollen nasal passages and dry secretions, but may cause palpitations, anxiety,and are not safe for people with High blood pressure or heart arrhythmias. 3. Topical Decongestants (Afrin/Cornelius-synephrin e) can be very helpful for acute relief of nasal swelling and runny nose, HOWEVER they should not be used regularly for more than 3 days as they will cause rebound congestion if over-used. 4. Cough aids generally contain DM( Dextromethorphan) which is a cough suppressant and Guaifenesin which is an expectorant. While the DM portion can be helpful for suppressing the cough, guaifenesin, particularly as dosed in Mucinex like products has minimal effect and may cause nausea. 5. Tamiflu an anti-viral agent may be prescribed if you are diagnosed with influenza. Viral symptoms usually last between 5-10 days, it is not uncommon to have a mild cough for up to 6 weeks afterward. If you have been diagnosed with influenza you should minimize your contact with others. You may return to work/school after 24 hours of being fever free without medication (usually 5-10 days). FOLLOW UP if your symptoms are not improving in 7-10 days If you have severe ear pain, sinus pain, cough productive large amounts of mucus, wheezing. You have underlying medical problems that may become worse as a result of your viral illness (asthma, diabetes, COPD) and need to follow up to ensure you are improving. SEEK CARE IMMEDIATELY IF 1 Severe headache unresponsive to Tylenol or severe neck stiffness 2. Confusion 3. Severe chest pain 4. Difficulty breathing 5. Persistent vomiting 6. Cough productive large amounts of sputum or blood 7. Inability to keep liquids down 8. Fever unresponsive to medication over 102 If you develop any new or worsening symptoms and need after hours care, please go to nearest ER and/or call 911. If you have additional concerns or develop a change in your condition between 8am-10pm, please call [facility] at [phone] to help navigate your care. Inhaler Instructions Before use, you need to prime the inhaler: Take the cap off the mouthpiece and put the inhaler in the spacer Shake the inhaler for 5 seconds Hold the inhaler upright with 1 finger on the top of the canister, the thumb on the bottom of the inhaler, and your other hand holding the spacer Express a large breath Close lips around spacer Press down on the canister After you press down on the canister, breathe (or have your child breathe in) deeply and slowly and hold your breath for 10 seconds Take out of your mouth and slowly exhale If you were instructed to take 2 puffs of the inhaler, wait one minute before you give the second puff. Shake the inhaler again before the second puff. If the inhaler is a steroid medicine (also called a g lucocorticoid or c orticosteroid ), rinse out your mouth, gargle, and spit out the water Cleaning: If you use the inhaler every day, you need to clean it at least once a week. If you use less often, clean the inhaler when you see powder in or around the hole. To clean an inhaler: Remove the canister and cap from the mouthpiece. Do not wash the canister or put the canister under water. Run warm water through the mouthpiece for 30 to 60 seconds Shake the water off of the mouthpiece and let it air dry Clean the spacer every 1-2 weeks. First, remove the inhaler from the spacer. Wash the spacer with warm water and dishwashing soap, but do NOT rinse it. Then let it air dry. Leaving the spacer a little soapy after cleaning actually helps it work better. [email or web address] Not available 02/26/2022 16:13:01 02/24/2023 [id number] viral respirator y infection: care instructions [email or web address] Not available 02/24/2023 14:58:22 Acute Sinusitis: Care Instructions [email or web address] Not available 02/24/2023 14:58:18 Reason for Referral None Reported. Results Created Date Observation Date Name Description Value Unit Range Abnormal Flag Note LastModifiedBy Organization Detail LastModifiedTime 07/22/20 21 07/22/2021 urina lysis , dipst ick Appearance cloudy Not Available [facility] [address] [place], [address], 07/22/2021 20:27:19 07/22/20 21 07/22/2021 urina lysis , dipst ick Color pale yellow Not Available [facility] [address] [place], [address], 07/22/2021 20:27:19 07/22/20 21 07/22/2021 urina lysis , dipst ick Glucose (ref: neg) Neg Not Available [facility] [address] [place], [address], 07/22/2021 20:27:19 07/22/20 21 07/22/2021 urina lysis , dipst ick Bilirubin (ref: neg) Neg Not Available [facility] [address] [place], [address], 07/22/2021 20:27:19 07/22/20 21 07/22/2021 urina lysis , dipst ick Ketones (ref: neg) Neg Not Available [facility] [address] [place], [address], 07/22/2021 20:27:19 07/22/20 21 07/22/2021 urina lysis , dipst ick Specific [place] (ref: 1.003 - 1.035) 1.010 Not Available [facility] [address] [place], [address], 07/22/2021 20:27:19 07/22/20 21 07/22/2021 urina lysis , dipst ick Blood (ref: neg) Neg Not Available [facility] [address] [place], [address], 07/22/2021 20:27:19 07/22/20 21 07/22/2021 urina lysis , dipst ick pH (ref: 5-7) 6.5 Not Available [facility] [address], [place], [address], 07/22/2021 20:27:19 07/22/20 21 07/22/2021 urina lysis , dipst ick Protein (ref: neg) Not Available [facility] [address] [place], [address], 07/22/2021 20:27:19 07/22/20 21 07/22/2021 urina lysis , dipst ick Urobilinogen (ref: 0.2) 0 Not Available [facility] [address] [place], [address], 07/22/2021 20:27:19 07/22/20 21 07/22/2021 urina lysis , dipst ick Nitrites (ref: neg) negati ve Not Available [facility] [address] [place], [address], 07/22/2021 20:27:19 07/22/20 21 07/22/2021 urina lysis , dipst ick Leukocytes (ref: neg) +++ Not Available [facility] [address] [facility], [place], [address], 07/22/2021 20:27:19 07/22/20 21 07/22/2021 urina lysis , dipst ick Location [facility] [address] [place] [address], [phone] Not Available [facility] [address] [place], [address], 07/22/2021 20:27:19 07/22/20 21 07/25/2021 URINE CULTU RE specimen description URINE Not Available [facility] (Centralized Electronic Ordering - All Locations) Patient Can Go To The Location Of Their Choice, 07/25/2021 15:21:22 07/22/20 21 07/25/2021 URINE CULTU RE special requests NONE Not Available [facility] (Centralized Electronic Ordering - All Locations) Patient Can Go To The Location Of Their Choice, 07/25/2021 15:21:22 07/22/2007/25/2021 URINE CULTU RE culture NO GROWTH Not Available [facility] (Centralized Electronic Ordering - All Locations) Patient Can Go To The Location Of Their Choice, 07/25/2021 15:21:22 07/22/2007/25/2021 URINE CULTU RE report status FINAL 2020 Not Available [facility] (Centralized Electronic Ordering - All Locations) Patient Can Go To The Location Of Their Choice, 07/25/2021 15:21:22 02/27/20 22 02/27/2022 COVID -19 (NOVE L CORON AVIRU S) PCR covid-19 PCR result (neg) NEGAT MARLINE 2019- novel Coron aviru s (2018nCoV ) not detec by real- time RT-PC R. Note: If clini antwan suspi cion for COVID -19 is high, aayush nue to maint ain preca ution s and consi miguel repea t testi ng. Resul t repor to the DPH. To preve nt error s in diagn osis, test resul ts shoul d be inter prete d in the jarvis xt of clini antwan findi ngs and other labor atory data. Rare polym orphi sms exist that could lead to false -nega tive or false -posi tive resul ts. If resul ts obtai curtis do not match the clini antwan findi ngs, addit ional testi ng shoul d be consi dered . This test has been autho rized by the FDA under an Emerg ency Use Autho rizat ion (EUA) for use by autho rized labor atori es. Testi ng perfo rmed by real time PCR utili [facility] 6800 SARS- CoV-2 test. Not Available [facility] (Centralized Electronic Ordering - All Locations) Patient Can Go To The Location Of Their Choice, [id number] 02/27/2022 16:32:55 02/27/20 22 02/27/2022 COVID -19 (NOVE L CORON AVIRU S) PCR covid-19 PCR specimen source NASAL Not Available [facility] (Centralized Electronic Ordering - All Locations) Patient Can Go To The Location Of Their Choice, [id number] 02/27/2022 16:32:55 02/25/20 23 02/25/2023 COVID -19 (NOVE L CORON AVIRU S) PCR covid-19 PCR result (neg) NEGAT MARLINE 2019- novel Coron aviru s (2018nCoV ) not detec by real- time RT-PC R. Note: If clini antwan suspi cion for COVID -19 is high, aayush nue to maint ain preca ution s and consi miguel repea t testi ng. Resul t repor to the DP. To preve nt error s in diagn osis, test resul ts shoul d be inter prete d in the jarvis xt of clini antwan findi ngs and other labor atory data. Rare polym orphi sms exist that could lead to false -nega tive or false -posi tive resul ts. If resul ts obtai curtis do not match the clini antwan findi ngs, addit ional testi ng shoul d be consi dered . This test has been autho rized by the FDA under an Emerg ency Use Autho rizat ion (EUA) for use by autho rized labor atori es. Testi ng perfo rmed by real time PCR utili [facility] MONTSE Mc40 SARS- CoV-2 test. Not Available [facility] (Centralized Electronic Ordering - All Locations) Patient Can Go To The Location Of Their Choice, [facility] 02/25/2023 12:12:09 02/25/20 23 02/25/2023 COVID -19 (NOVE L CORON AVIRU S) PCR covid-19 PCR specimen source NASAL Not Available [facility] (Centralized Electronic Ordering - All Locations) Patient Can Go To The Location Of Their Choice, [facility] 02/25/2023 12:12:09 02/25/20 23 02/24/2023 rapid SARS CoV 2 Ag, QL IA, respi rator y speci men Covid-19 (ref: neg) negati ve Not Available [facility] [address] [place] [address], [address], 02/24/2023 14:54:39 02/25/20 23 02/24/2023 rapid SARS CoV 2 Ag, QL IA, respi rator y speci men Control Visual ized/V alid Not Available [facility] [address] [place], [address], 02/24/2023 14:54:39 02/25/20 23 02/24/2023 rapid SARS CoV 2 Ag, QL IA, respi rator y speci men Location [facility], [facility], [address] [place] [address], [phone] Not Available [facility] [address] [place] [address], [phone], 02/24/2023 14:54:39 02/25/20 23 02/24/2023 rapid flu (A+B) Flu A (ref: neg) negati ve Not Available [facility] [address] [place], [address], 02/24/2023 14:54:24 02/25/20 23 02/24/2023 rapid flu (A+B) Flu B (ref: neg) negati ve Not Available [facility] [address] [place], [address], 02/24/2023 14:54:24 02/25/20 23 02/24/2023 rapid flu (A+B) Control Visual ized/V alid Not Available [facility] [address] [place], [address], 02/24/2023 14:54:24 02/25/20 23 02/24/2023 rapid flu (A+B) Location [facility], [facility], [address] [place] [address], [phone] Not Available [facility] [address], [address], 02/24/2023 14:54:24 Result Notes None recorded. Procedures Surgical History Date Name Laterality Status Provider Name and Address Organization Details Recorded Time 023 Medication Review completed JESSIE Landon [address] [place], [address], [place] [facility] 02/24/2023 18:29:49 021 ECG Interpretation - DH completed GEORGE BOOKER NP [address] [place], [address], [place] [facility] 08/18/2021 03:37:57 section completed JEMIMA DUMONT NP [address] [place], [address], [place] [facility] 07/22/2021 19:54:23 tonsillectomy completed JEMIMA CANO NP [address] [place], [address], [place] [facility] 07/22/2021 19:54:32 Imaging Results None recorded. Procedure Notes None recorded. Medical Equipment None Reported. Allergies Allergen ID Allergen Name Allergen Category Reaction Reaction Severity Criticality Documentation Date Start Date Code Code System Note Provider Name and Address Organization Details Recorded Time 977181 Product containin g penicilli n (product) medicatio n Not available Not available Not available 07/22/2021 98117 8001 SNOMED JEMIMA CANO NP [address], [place], [address], [place] [facility] 19:[facility] Medications Name Sig Start Date Stop Date Status Note LastModified by Organization Details LastModified Time cyclobenzap rine 10 mg tablet TAKE 1 TABLET BY MOUTH THREE TIMES A DAY active Not Available Not Available No t Available doxycycline hyclate 100 mg capsule TAKE 1 CAPSULE BY MOUTH TWICE A DAY DIRECTED FOR 7 DAYS active Not Available Not Available No t Available clindamycin HCl 300 mg capsule TAKE 2 STAT THEN 1 CAPSULE 3 TIMES A DAY 07/22 completed Not Available Not Available Not Available azithromyci n 250 mg tablet TAKE 2 TABLETS BY MOUTH TODAY, THEN TAKE 1 TABLET DAILY FOR 4 DAYS 02/26 completed Not Available Not Available Not Available metoprolol succinate ER 50 mg tablet,exte nded release 24 hr TAKE 1 TABLET BY MOUTH EVERY DAY active Not Available Not Available No t Available cephalexin 250 mg capsule TAKE 1 CAPSULE BY MOUTH THREE TIMES A DAY 07/22 completed Not Available Not Available Not Available clobetasol 0.05 % topical cream APPLY THIN COAT TO AFFECTED AREA TWICE A DAY active Not Available Not Available No t Available metronidazo le 500 mg tablet TAKE 1 TABLET BY MOUTH 3 TIMES A DAY FOR 10 DAYS 07/22 completed Not Available Not Available Not Available doxycycline monohydrate 100 mg tablet TAKE 1 TABLET BY MOUTH TWICE A DAY 07/22 completed Not Available Not Available Not Available ketorolac 0.5 % eye drops STARTING 2 DAYS BEFORE SX, INSTILL 1 DROP TWICE DAILY INTO OPERATIVE EYE 07/22 completed Not Available Not Available Not Available prednisolon e acetate 1 % eye drops,suspe nsion INSTILL 1 DROP IN EACH EYE 3 TIMES A DAY FOR 5 DAYS FOLLOWING LASER 02/24 completed Not Available Not Available Not Available brimonidine 0.2 % eye drops INSTILL 1 DROP INTO BOTH EYES TWICE A DAY 07/22 completed Not Available Not Available Not Available hydrochloro thiazide 25 mg tablet TAKE 1 TABLET BY MOUTH EVERY DAY active Not Available Not Available No t Available gabapentin 100 mg capsule 02/24 completed Not Available Not Available Not Available metoprolol succinate ER 25 mg tablet,exte nded release 24 hr TAKE 1 TABLET BY MOUTH EVERY DAY active Not Available Not Available No t Available loteprednol etabonate 0.5 % eye drops,suspe nsion INSTILL 1 DROP INTO BOTH EYES TWICE A DAY active Not Available Not Available No t Available lorazepam 1 mg tablet TAKE 1 TABLET BY MOUTH 1 HOUR BEFORE SURGERY 02/24 completed Not Available Not Available Not Available ipratropium bromide 42 mcg (0.06 %) nasal spray USE 2 SPRAYS IN EACH NOSTRIL 3 TIMES A DAY active Not Available Not Available No t Available losartan 100 mg tablet TAKE 1 TABLET BY MOUTH EVERY DAY active Not Available Not Available No t Available tobramycin 0.3 %-dexametha sone 0.1 % eye drops,suspe nsion INSTILL 1 DROP INTO BOTH EYES TWICE A DAY 02/24 completed Not Available Not Available Not Available neomycin 3.5 mg/g-polymy haylee B 10,000 unit/g-dexa meth 0.1 % eye oint APPLY AT BEDTIME TO BOTH EYES' 02/24 completed Not Available Not Available Not Available atomoxetine 25 mg capsule TAKE 1 CAPSULE BY MOUTH TWICE A DAY IN THE MORNING IN THE EVENING 02/24 completed Not Available Not Available Not Available atomoxetine 60 mg capsule TAKE 1 CAPSULE BY MOUTH EVERY DAY 02/24 completed Not Available Not Available Not Available Restasis 0.05 % eye drops in a dropperette active Not Available Not Available Not Available Vitamin C active Not Available Not Cristina ilable Not Available cetirizine active Not Available Not Av ailable Not Available atomoxetine 80 mg capsule TAKE 1 CAPSULE BY MOUTH ONCE A DAY 07/22 completed Not Available Not Available Not Available Systane (PF) active Not Available Not Available Not Available Vitals Date Recorded Body temperature Provider Name a nd Address Organization Details Last Updated DateTime 02/24/2023 100.6 [degF] JESSIE Landon [address], [place], [address], [place] [facility] 02/24/2023 18:22:55 Date Recorded Heart rate Oxygen saturation Oxygen saturation in Arterial blood by Pulse oximetry Respiratory rate Systolic And Diastolic Provider Name and Address Organization Details Last Updated DateTime 3 89 /min 98 % 98 % 20 /min 138/82 mm[Hg] Not Available [facility] 3 14:33:37 Date Recorded Oxygen saturation Oxygen saturation in Arterial blood by Pulse oximetry Heart rate Respiratory rate Body temperature Systolic And Diastolic Provider Name and Address Organization Details Last Updated DateTime 2 96 % 96 % 92 /min 20 /min 97.8 [degF] 160/86 mm[Hg] Not Available [facility] 2 16:17:37 Date Recorded Oxygen saturation Oxygen saturation in Arterial blood by Pulse oximetry Heart rate Respiratory rate Body temperature Systolic And Diastolic Provider Name and Address Organization Details Last Updated DateTime 1 98 % 98 % 89 /min 20 /min 96.6 [degF] 120/90 mm[Hg] Not Available [facility] 1 14:25:57 Date Recorded Respiratory rate Heart rate Body temperature Oxygen saturation Oxygen saturation in Arterial blood by Pulse oximetry Systolic And Diastolic Provider Name and Address Organization Details Last Updated DateTime 1 18 /min 84 /min 98.2 [degF] 98 % 98 % 168/82 mm[Hg] Not Available [facility] 1 16:53:44 Date Recorded Body temperature Respiratory rate Oxygen saturation Oxygen saturation in Arterial blood by Pulse oximetry Heart rate Systolic And Diastolic Provider Name and Address Organization Details Last Updated DateTime 1 97.1 [degF] 18 /min 97 % 97 % 96 /min 150/100 mm[Hg] Not Available [facility] 1 14:12:07 Social History Question Answer Notes LastModified by Organizat ion Details LastModified Time Tobacco Smoking Status Never Smoker JEMIMA CANO NP [address], [place], [address], [place] [facility] 07/22/2021 19:53:01 Do You Have An Advance Directive? No [email or web address] Information not available 07/22/2021 What Is Your Code Status? Full Code [email or web address] Information not available 07/22/2021 Within The Past 12 Months, Has It Happened That The Food You Bought Just Didn't Last And You Didn't Have Money To Get More. No [email or web address] Information not available 07/22/2021 Within The Past 12 Months, Have You Worried That Your Food Would Run Out Before You Got Money To Buy More. No [email or web address] Information not available 07/22/2021 Fall Risk: Do You Feel Unsteady When Standing Or Walking? No [email or web address] Information not available 07/22/2021 We Know That How And When People Interact With Friends And Family Can Be Very Different From Person To Person. How Often Do You Have The Opportunity To See Or Talk To People That You Care About And Feel Close To? (Ex: Talking To Friends On The Phone Or Visiting Friends Or Family Or Going To [employer]oro[employer] Or Club Meetings) 5 Or More Times Per Week Information not available 07/22/2021 Excessive Alcohol Or Drug Use No [email or web address] Information not available 07/22/2021 Does This Patient Have A PCP? Yes [email or web address] Information not available 07/22/2021 We Know From Many Of Our Patients That Covering All Of Their Costs Can Be Difficult At Times. This Can Cause Stress And Impact Health. In The Past Year, Have You Been Unable To Get Any Of The Following When It Was Really Needed? No [email or web address] Information not available 07/22/2021 What Is Your Housing Situation Today? I Have Housing [email or web address] Information not available 07/22/2021 Would You Like Help Connecting To Resources? None [email or web address] Information not available 07/22/2021 Sex: Unknown Functional Status Question Answer Note LastModified by Organizat ion Details LastModified Time Do you use any illicit or recreational drugs? No [email or web address] Information not available 07/22/2021 Do you or have you ever used any other forms of tobacco or nicotine? No [email or web address] Information not available 07/22/2021 What is your level of alcohol consumption? Occasional [email or web address] Information not available 07/22/2021 Mental Status None recorded. Family History Relationship Description Onset Age of this Age Resolved Age Notes LastModified by Organization Details LastModified Time Father No current problems or disability [email or web address] Not available 07/22 19:52:33 Mother No current problems or disability Not available 07/22 19:52:33 Medical History Condition Response Diabetes N Coronary Artery Disease N Cancer N Stroke N COPD N Depression Y Asthma N High Cholesterol Y Pulmonary Embolism N Hypertension Y Kidney Disease N Gynecological HistoryNo gynecological history recorded. Obstetrics History GPAL:G 0 P 0 0 0 0 Immunizations Vaccine Type Date Status Note Provider Nam e and Address Organization Details Recorded Time COVID-19, mRNA, LNP-S, PF, 100 mcg/0.5mL dose or 50 mcg/0.25mL dose 02/09/2021 completed JEMIMA CANO NP [address] [facility] [place], [address], [place] [facility] 07/22/2021 19:52:11 COVID-19, mRNA, LNP-S, PF, 100 mcg/0.5mL dose or 50 mcg/0.25mL dose 03/16/2021 completed JEMIMA CANO NP [address] [place], [address], [place] [facility] 07/22/2021 19:52:29 Past Encounters Encounter ID Performer Location Encounter Start Date Encounter Closed Date Diagnosis/Indication Diagnosis SNOMED-CT Code Diagnosis ICD10 Code Diagnosis IMO Codes Diagnosis Note [id number] JEMIMA CANO NP [facility] [address] [place] [address] 07/22/2021 19:50:01 07/23/2021 21:51:00 Acute urinary tract infection 330199273 N39.0 Stress and adjustment reaction 074057792 F43.9 [id number] GEORGE BOOKER NP [facility] [address] [place] [address] 08/13/2021 14:24:13 08/21/2021 11:07:51 Irregular heart beat 358303126 R00.8 [id number] JEMIMA CANO NP [facility] [address] [place] [address] 09/22/2021 16:47:52 09/26/2021 16:00:00 Medication side effects present 754896763 T50.905A Excessive sweating 82904 005 R61 Nausea 006240588 R11.0 [id number] JESSIE ROBLES [facility] [address] [facility] [address] 10/09/2021 13:48:56 10/14/2021 15:28:46 Closed fracture of rib 56247053 S22.32XA left anterior 7th rib Fracture o f distal end of fibula 428194482 S82.892A subtle left distal fibular shaft fracture [id number] JESSIE Muro [facility] [address] [place] [address] 02/26/2022 16:11:18 02/27/2022 13:18:23 Exposure to communicable disease 728609697 Z20.822 Common cold 72098971 J00 Proper Personal Protective Equipment (PPE), including gloves, eye protection and masks were donned and doffed sejal kat and all equipment cleaned using approved technique with germicidal disposable wipes prior to and after care of this patient according to [facility]'s infection prevention protocols. 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 No chest pain or SOB. COVID contact 7 days ago. Exam: ENT exam wnl, lung exam clear to auscultati on. AVSS. nontoxic appearing. no resp distress. afebrile. DDx considered , but not limited to:viral URICOVID Work up/Results :COVID PCR Plan/Discu ssion:-pt with 4 days of upper resp symptoms-a febrile, nontoxic, clear lungs-po intake intact-COV ID PCR collected- pt will remain quarantine d-if fevers chills, chest pain, shortness of breath, productive cough, seek emergent re-eval. In order to obtain further informatio n and compare any laboratory results/va lues, I have accessed . This informatio n was pertinent in my medical decision making today. [id number] JESSIE Olivier [facility] [address] [facility] [place] [address] 02/24/2023 13:02:17 02/28/2023 10:07:59 Acute sinusitis 53175276 J01.90 Status of condition: Acute. Testing/Re sults:Rapi d COVID and Flu negative; COVID PCR pending Discussion :There is some inflammati on to her frontal sinusNo red flag s/sSuspect viral at this time given 5 days of sxs and collection of sore throat, nasal congestion , and mild coughShe does have fever and prone to bacterial sinusitis she reports howeverWil l send doxycyclin e to her pharmacy so she may pick it up if no better in couple of Rhonda expect her to start felling better in next 24-48 hours, if not slat pickler abx, take w/ food and probiotic to avoid GI upset, also dc Vit C if taking this as Vit C can impede absorption of DoxyIF not better after couple days of abx, NEED TO F/U AGAIN URGENTLY/E MERGENTLY FOR RE-EVALPt verbalizes understand ing of the above Plan, Medication Management & Follow-up recommenda tions: see above Viral syndrome [id number] B34.9 Status of condition: Acute. Testing/Re sults:See below Discussion :Seems to be ML cause of sxs at this timeMild sore throat, cough, sinus pressureFe ramón present, other VSS, exam generally benign, she is not toxic and appears quite well despite fever and sxsExpect resolution of sxs in coming daysIf fever and sxs persists abx as per belowNeg COVID and Flu tests todayRest and fluidsF/u if sxs linger or chnageED for high fever, lethargy, cyanosis/p allor, abd pain, NVD, weakness, numbness/t ingling, visual changes, SOB, chest pain, worsening sxs Plan, Medication Management & Follow-up recommenda tions: see above Pt and is on agreement and verbalizes understand ing with the above plans at this time.Pt and has no other questions or concerns at this time. All questions are answered to the best of my ability.Pt and thanks us for our visit today. Pt and left in great spirits today very thankful for our visit and care and are happy our service exists. The are educated to call back w/ any further questions or concerns and we will do our best to answer. Health Concerns Section Related Observation LastModified by Organization Detai ls LastModified Time None Recorded Concern Status LastModified by Organization Details LastModified Time None Recorded Advance Directives Directive N: Payers Insurance Date Sequence Insurance Name Policy Number Policy Reyes Covered Member ID Reyes Member ID Guarantor Name 02/28/2023 1 [place] PPO) [id number] Polo Pudlo [id number] Polo Pudlo 02/28/2023 1 [place]MED[place] HMO) [id number] Polo Pudlo [id number] Polo Pudlo 02/28/2023 1 [place] [id number] Polo Pudlo [id number] Polo Pudlo 02/24/2023 1 [place]MED[place] HMO) [id number] Polo Pudlo [id number] Polo Pudlo 09/28/2021 1 [place] [employer] Polo Pudlo [id number] Polo Pudlo 09/28/2021 1 *SELF PAY* Polo Pudlo [id number] Polo Pudlo Notes Date Note Type Note Provider Name and Address Organization Details Recorded Time 08/13/20 21 text/htm l 75 yo female with PMH of HTN, rosacea, IFG, BVRO, cataract surgery, ADHD, and fibromyalgia who is known to [facility] but new to this provider who reports she has noticed on her watch that her heart rate waves go up and down. Denies racing heart beat or skipped heart beats.Denies feeling palpitations.States she felt an erratic heart beat for about 12 hours yesterday.Today, she has felt it intermittently.She denies feeling any erratic heart beat now. Denies use of any caffeine intake.Denies any recent use of decongestants or antihistaminesAdmits she had some increased stressed yesterday which may have contributed to the erratic heart rate.She also admits to eating 12 chocolate kisses, but not sure if that would have impacted her HR She denies any chest pain/pressure or tightness, No SOB, No pain with inspiration , No headache but admits to some dizziness/lightheadednes s the previous day.She admits to occasional sweating but not sure if hot flash related but no sweating now.States she is taking fluids well.She does have chronic dry mouth from her medications. GEORGE BOOKER NP [address], [place], [address], [place] [facility] 08/18/2021 03:38:06 09/22/20 21 text/htm l 76 yo female who is known to and to this provider. Last seen by on 08/13/21 for same reason (fast heart rate), no acute abnormalities found during that visit. 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 She endorses over the last two weeks she has noticed intermittent irregular heart rhythms that caused her to feel worried, specifically over the last couple of nights where she states unrelated to her irregular heart rhythms she has not been able to interrupted sleep. She states that when her heart begins to beat irregular she states she cannot think of any symptoms that correlate to it. She states that she does break into periods of time when she breaks of in profuse sweating, and she feels miserable when this occurs due to the loss of control and not knowing the cause of the episodes of profuse sweating. She spoke with her PCP about her previous arrhythmia who stated that since her career change and decrease stress level it seems she had found the source; no repeat ECG. She states she worked all last week until yesterday and she was feeling nauseated, she states she has not vomiting; She states it comes on every day; feels ok in the a.m. but comes on later in the day; sleeping helps w/naps and it seems to come back within 15 minutes after waking up. She endorses mild DIOR off and on lately, sporadic in nature; she states she has not made any connection between her HAs and profuse sweating; nauseated so often that her DIOR and nausea do occur at the same time. She state ongoing chronic spine issues in her neck and sacro-iliac area as well she states she has a lot of seasonal allergy issues and recent nasal congestion issues. Her headaches are always frontal, dull aching, intermittent, rated at 2 or 3/10; She does not know of anything that makes her headache; she states she gave her self a scalp message today and it helped. She states that a body temperature of 98 anything it is a low grade fever; when she gets a temp in 98-99 anything she feels sick. Denies any acutely new cough, sore throat, chest pain, abdominal pain, vomiting, diarrhea, Last BM on Saturday; she states she went a lot. She states she takes colace; on the days when she has a bowel movement she does feel sickly; and on those days she can go repeatedly for hours. Accessed patient health information exchange: recent BMP on 09/09/21 WNL save for Glucose of 114. JEMIMA CANO NP [address], [place], [address], [place] [facility] 09/25/2021 21:12:57 10/09/20 21 text/htm l 76 y/o F with hx of HTN, HLD, and Depression, known to but new to provider, is seeking further evaluation for left leg pain and left ribcage pain x 2 weeks. The patient states that on 09/25/2021 she experienced a fall where she landed on her left side. She went to an urgent care called [facility] where she had xrays performed. It was found at that time that the patient had a nondisplaced fracture in the anterior surface of the left 7th rib. A few days later, the patient received a call from the urgent care who made her aware that she also had a subtle nondisplaced fracture in the distal fibular shaft. The patient states that her rib pain has almost completely resolved. The patient had called today for education on how to proceed with her left distal fibular fracture. The patient was not given any information by the urgent care on how to deal with her fracture. The patient has been ambulatory on her lower extremity with very minimal pain, but has had some bruising and swelling present. Patient has not taken any medicine. 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 JESSIE Muro [address], [place], [address], [place] [facility] 02/26/2022 16:59:35 02/25/20 23 text/htm l 77 YO F new to provider but known to [facility] is being seen today in her home for some cough and congestionHer is also present, I have met him before and seen him as a patient in the past at a different jobPatient reports being at a last Saturday, she was worried she would be exposed to sick people there and she ended up developing sxs consistent w/ URI Saturday into Saturday. She is now on day 5 of sxs. She has been having fever, body aches, stuffy nose, sore throat and congestion. Sinuses feel backed up. She has been taking Tussin to help w/ cough w/ good effect. She has been taking Tylenol for fever w/ good effect as well. Nothing seems to make her sxs worse. She currently denies any SOB, chest pain, abd pain, NVD, urinary sxs, weakness, confusion, lethargy, cyanosis/pallor, severe headache, ear pain, visual changes. No other reported sxs at this time. JESSIE Landon [address], [place], [address], [place] [facility] 02/24/2023 18:40:59 OBGyn Episode No OBEpisode recorded.
== END 2025-09-28 13:59 | disposition home or self-care (01) ==
PROVIDERS: Visit Provider Internal Medicine
DX: I49.8 Other specified cardiac arrhythmias (principal); I10 Essential (primary) hypertension
CPT/HCPCS: 93010; 99214; G2211

== ENCOUNTER → 2025-09-28 13:23 | Outpatient (BNVA) | payer MEDICARE, SELFPAY | PROVIDERS: Visit Provider Internal Medicine | DX: I10 Essential (primary) hypertension (principal); I49.8 Other specified cardiac arrhythmias | CPT/HCPCS: 93005; 99212 ==

== ENCOUNTER 2025-11-08 13:03 | Outpatient (AMB) | payer MEDICARE, SELFPAY ==
--- NOTE | 2025-11-08 13:05 | MHC.OFFVIS ---
Vital Signs 11/08/25 13:09 Height 5 ft 4 in Weight 155 lb 3.287 oz BMI 26.6 BP 136/82 Blood Pressure Location Rt brachial Position Sitting Pulse 89 Pulse Source Pulse Oximeter Pulse Oximetry (%) 98 Oxygen Delivery Method Room Air Intake Visit Reasons: Osteopenia/T2DM Intake Note: Patient present today to follow up on Type 2 Diabetes Mellitus and Osteopenia. Last seen by Maria Luisa Rasmussen on 03/11/2025. Last Diabetic Eye exam: approx [address] 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 She has been managing her diabetes with diet and exercise, which has been effective. She uses a MyCabbage Smiley continuous glucose monitor, which has helped her control her blood sugars. Her mother had issues with hypoglycemia, but there is no known family history of type 2 diabetes. The patient has a diagnosis of osteopenia and a history of osteoporosis in her neck. She reports a strong family history of osteoporosis, with her sister also having the condition. About four years ago, she sustained multiple fractures, including two ribs and leg fractures, from a very hard fall forward. A complete secondary workup for osteopenia by her prior provider was negative. She has not been consistent with weight-bearing exercises for the past six months. Past medical history is significant for tachycardia, for which she is on medication, and gastroesophageal reflux with a hiatal hernia. She also reports a history of attention deficit disorder, fibromyalgia, and continues to experience menopausal hot flashes. She quit smoking 35 years ago and rarely consumes alcohol. Medication History - Currently on medication for tachycardia. - Currently taking Vitamin D supplements. - Prior use of omeprazole for reflux. Medications - Unspecified medication for tachycardia - Vitamin D supplement Exercise The patient reports she has not been performing her recommended exercises for the past six months but plans to restart weight-bearing activities. She enjoys playing pickleball with her grandchildren and was advised to continue this activity. Diet History The patient manages her diabetes with diet and exercise. She reports having a diet rich in milk and cheese. Results - A1c: 6.0%. - Freestyle Smiley data (last 2 weeks): Estimated A1c 6.1%, time in range 97%. - Bone Density: T-scores are in the osteopenia range. - FRAX score: Calculated 10-year probability of a major osteoporotic fracture is 21%. - Prior osteopenia workup (vitamin D levels, 24-hour urine): Findings were negative. [facility] Medical History Hypercalcemia Type 2 diabetes mellitus Retinal vein occlusion Hypertension Hyperlipidemia GERD (gastroesophageal reflux disease) Fibromyalgia Attention deficit disorder of adult with hyperactivity Surgical History Cataract Hx of tonsillectomy H/O section Family History Father No problems noted. Mother Heart disease Lung cancer Paternal Grandfather HTN (hypertension) Parkinsons Maternal Grandmother Cancer Social History Alcohol intake: current Alcohol intake frequency: holidays/special occasions only Patient Tobacco Use Status: Former Tobacco user Tobacco use type: Cigarette Review of Systems Narrative Review of Systems - Eyes: Reports vision loss in the left eye. - Endocrine: Reports ongoing menopausal hot flashes. - Musculoskeletal: No recent fractures reported. - Reports neck pain. - Cardiovascular: Reports history of rapid heart rate. - Gastrointestinal: Reports history of reflux and a hiatal hernia. Physical Exam Exam Exam: Physical Exam - General: Appears well and not frail. Absence of Cushingoid features. Absence of acromegalic features. Neck exam reveals nl size thyroid about 15 gms. No thyroid nodules palpable. Heart S1 S2, Reg R/R. No M/R G. Skin exam reveals absence of vitiligo or acanthosis nigricans. Visual exam of foot performed. No ulcerations or open lesions. No inter digit maceration or fissuring. No onychomycosis, no callouses. Sensation intact to monofilament exam. Vibratory sensation is normal with 128 Hz tuning fork. Vital Signs: Last Vital Signs Pulse 89 11/08/25 13:09 BP 136/82 11/08/25 13:09 Pulse Ox 98 11/08/25 13:09 Oxygen Delivery Method Room Air 11/08/25 13:09 BMI result Body Mass Index 26.6 Absence of Cushingoid features. Absence of acromegalic features. Neck exam reveals nl size thyroid about 15 gms. No thyroid nodules palpable. No carotid bruits present. Lungs CTA. Heart S1 S2, Reg R/R. No M/R/ G. Skin exam reveals absence of vitiligo or acanthosis nigricans. Abdominal exam reveals Soft NT/ND with NA BS. No organomegaly present. Neck Other: . Extrem Other: Visual exam of foot performed. No ulcerations or open lesions. No onchomycosis, no callouses.Pulses 2 + distally Sensation intact to monofilament exam. Vibratory sensation sensed is intact with 128 Hz tuning fork Results AMB Hemoglobin A1c AMB Hemoglobin A1c 6.0 % Last Edit by ROSE Miranda on 11/08/25 13:34 Results Reviewed Results Reviewed: Laboratory Last Values Glucose (Clinic) 132 mg/dL (60-115) H 11/08/25 13:18 Assessment & Plan Assessment & Plan (1) Type 2 diabetes mellitus: Code(s): E11.9 - Type 2 diabetes mellitus without complications Category: Medical Plan: This is a 80-year-old white female with a history of type 2 diabetes with diet control with excellent glycemic control and no known microvascular macrovascular complications (2) Osteopenia: Code(s): M85.80 - Other specified disorders of bone density and structure, unspecified site Category: Medical Plan: Currently on calcium and vitamin-D. FRAX calculation does technically meet the criteria for pharmacologic treatment with risk of major osteoporotic fracture > 20%. Has not had a osteoporotic fracture. Bone density in his low bone mass range We will talk to the patient about potentially going on pharmacologic treatment with a bisphosphonate either oral or intravenous. After discussion with the patient, it was decided to try nonpharmacologic therapy continuing calcium and vitamin-D and weight-bearing exercise. Patient returned to the care of her primary care provider who can check a DEXA bone density in 06/2026 and if this progression to osteoporosis, can start an oral or intravenous bisphosphonate or returned the patient back to endocrinology Plan Assessment and Plan 1. Diabetes Mellitus The patient's diabetes is very well-controlled with diet and exercise, with a recent A1c of 6.0%. Due to a lack of a strong family history of type 2 diabetes, there is consideration for a slowly progressing autoimmune (type 1) diabetes. Therefore, a GAD65 antibody test will be ordered to investigate this possibility. No pharmacologic therapy is indicated at this time. The patient will continue current management with diet, exercise, and glucose monitoring with her CGM. Samples of the ITT EXIMyle Smiley 3 Plus and a reader were provided, and a prescription was sent to her pharmacy. 2. Osteopenia The patient has low bone mass with a FRAX score indicating a 21% 10-year risk of major osteoporotic fracture, which meets the threshold for considering treatment. A detailed discussion was held regarding the risks, benefits, and alternatives of pharmacologic therapy versus conservative management. Options discussed included bisphosphonates (oral alendronate, IV zoledronic acid) and other agents. The patient has decided to defer pharmacologic treatment at this time. She will focus on ensuring adequate calcium intake (1200 mg/day total), continuing vitamin D, and resuming weight-bearing exercise. She will follow up with her primary care provider, who will arrange for a repeat bone density scan in June 2026. Fall prevention strategies were also discussed. The patient had an opportunity to ask questions regarding treatment plan. The patient expressed understanding and agreement with the above treatment plan. T Patient was informed and verbally consented to the use of an ambient scribe for clinic note documentation during this visit. Discussion Notes I had an extensive conversation with the patient regarding her diagnosis of osteopenia. I explained the pathophysiology of osteoporosis, including the roles of osteoblasts and osteoclasts, and how bone density is measured with T-scores. We discussed her FRAX score, which calculates a 21% risk of a major osteoporotic fracture in the next 10 years, placing her just over the 20% threshold where treatment is typically considered. We reviewed the different classes of medications for osteoporosis, including antiresorptive therapies like bisphosphonates (alendronate/Fosamax, zoledronic acid/Reclast) and anabolic agents. I detailed the potential side effects, noting that her history of GERD could make oral alendronate difficult to tolerate, and shared an anecdote about a patient's adverse reaction to IV Reclast to illustrate that these medications are not without risk. Through shared decision-making, the patient expressed her preference to try conservative measures first, including optimizing calcium and vitamin D intake, resuming weight-bearing exercise, and implementing fall precautions. She understands she can change her mind at any time. The plan is to follow up with her PCP and repeat her bone density scan in June 2026, and to reassess the need for medication at that time. Regarding her diabetes, I explained the rationale for ordering a GAD65 antibody test to rule out a smoldering adult-onset type 1 diabetes, given her lack of family history of type 2. I reassured her that her glucose control is excellent and that no medications are needed now. Patient Instructions - You will need to get a blood test called GAD65 antibodies to check for a specific type of diabetes. - It is recommended to have this done at the [facility]. - Continue managing your diabetes with your current diet and exercise routine. - You were given samples of the Freestyle Smiley 3 Plus and a reader to use for monitoring your blood sugar. - For your bone health, aim for a total of 1200 mg of calcium each day. - Try to get most of this from food, and you can supplement with [id number] calcium citrate to reach the goal. - Continue taking your vitamin D supplement as you have been. - Restart your weight-bearing exercises. - It is safe and encouraged for you to resume activities like playing pickleball. - Be mindful of fall risks at home. - Ensure stairs are well-lit and floors are clear of tripping hazards like toys or rugs. - You will follow up with your primary care provider for ongoing management. - Your next bone density scan is due in June 2026. T Orders: Orders AMB Hemoglobin A1c Today E11.9 - Type 2 diabetes mellitus without complications Glutamic acid decarboxylase Ab Today E11.9 - Type 2 diabetes mellitus without complications Medications: New blood-glucose sensor (FreeStyle Smiley 3 Sensor device) As directed change every 14 days 2 ea 5RF Discontinued FreeStyle Smiley 2 Plus Sensor (blood-glucose sensor) Discontinued Reason: Doctor's Order As directed changed every 15 days 2 ea 11RF NS E11.9 - Type 2 diabetes mellitus without complications Coding Level of Care Code Est Pt Level 4 (34575) Add On Problem Visit Only Diagnoses Type 2 diabetes mellitus E11.9 Osteopenia M85.80
[2025-11-08 13:09] VITALS: BP 136/82; PULSE 89; O2SAT 98; BMI 26.6
[2025-11-08 13:24] LABS: Glucose, Whole Blood 132 mg/dL (60-115)
--- OUTSIDE RECORDS SUMMARY | 2025-11-08 19:03 | XMS_ITS | Patient Health Record ---
[facility] Address [address] [place] [address] Care Team Providers Care Environmental Health And Safety Manager Name Role Phone Beata Figueroa Primary Care Provider Mariella Barrios Unavailable [phone] Allergies Allergen (clinical drug ingredient) Drug/Non Drug [...] Omeprazole Unknown Vitamin C Active Probiotic Unknown Papillion 3 Active Nasal Allergy Active Nabumetone 750 [...] Status Risk Notes Problem Acquired hallux valgus (82826640) Hallux valgus (acquired), left foot (M20.12) Active confirmed Problem Acquired hallux valgus (42162688) Hallux valgus (acquired), right foot (M20.11) Active confirmed Problem Neuropathy (221002200) Neuropathy (G62.9) Active confirmed Plan Of Treatment Pending Test Test Name Order Date X ray : Foot, left 2V 07/16/2017 X ray : Foot, right 3V 07/16/2017 Insurance Providers Payer Name Payer Address Payer Phone Subscriber Number Group Number Insured Name Patient Relationship to Insured Coverage Start Date Coverage End Date [employer] 65 Medicare Preferred [address] [place] [address] [id number] Polo Bell Self - patient is the [...]
== END 2025-11-08 14:46 | disposition home or self-care (01) ==
LOC: HO.ENCR 13:03
PROVIDERS: PCP Internal Medicine; Visit Provider Internal Medicine Endocrinology, Diabetes & Metabolism
DX: E11.9 Type 2 diabetes mellitus without complications (principal); M85.80 Other specified disorders of bone density and structure, unspecified site
CPT/HCPCS: 99214; G2211

== ENCOUNTER → 2025-11-08 13:03 | Outpatient (BNVA) | payer MEDICARE, SELFPAY | PROVIDERS: PCP Internal Medicine; Visit Provider Internal Medicine Endocrinology, Diabetes & Metabolism | DX: E11.9 Type 2 diabetes mellitus without complications (principal); M85.80 Other specified disorders of bone density and structure, unspecified site; Z79.899 Other long term (current) drug therapy | CPT/HCPCS: 82947; 83036; 99212 ==